=== PATIENT | female | born 1975 | race African-American/Black ===

== ENCOUNTER 2020-02-18 11:27 | Inpatient (IN) | payer MEDICAID ==
[~2020-02-18] VITALS: Ht 170.2 cm; Wt 101.6 kg
[2020-02-18 11:27] VITALS: BP 121/70
--- NOTE | 2020-02-18 11:51 | Emergency Room Report ---
History of Present Illness General Chief Complaint: Abdominal Pain Source: Patient, EMS Present Illness HPI Is a 44-year-old female presents after increased abdominal pain after running out of her pain medications. Prior history of endometrial cancer and had been followed by Dr. Noris Lazo at [facility]. She reports having severe pain to the left side of her lower abdomen. Had recent CT imaging which showed tumor in her uterus as well as her cervix. She had not had any surgical procedures yet and was scheduled to have radiation oncology. Reportedly had allergy to penicillin. She states she takes Klonopin as well as Lexapro regularly. 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 COVID-19 Screening: Negative COVID-19 COVID-19 Testing Source: remittance clerk Patient History Past Medical History: see triage record Now: No Reviewed Nursing Documentation: PMH: Agreed; PSxH: Agreed Nursing Documentation-PMH Hx Diabetes: Yes Hx Cancer: Yes - endometrial Review of Systems All Other Systems: negative except mentioned in HPI Physical Exam Vital Signs Date Time Temp Pulse Resp B/P (MAP) Pulse Ox O2 Delivery O2 Flow Rate FiO2 02/18/20 11:13 98.8 107 20 111/71 (84) 96 Room Air Sp02 EP Interpretation: reviewed, normal General Appearance: normal inspection, alert, obese, Chronically Ill Head: atraumatic ENT: normal ENT inspection, hearing grossly normal, normal voice Neck: normal inspection, full range of motion, supple, no bony tend Respiratory: normal inspection, lungs clear, normal breath sounds, no respiratory distress, no retraction, no wheezing Cardiovascular #1: regular rate, rhythm, no edema Gastrointestinal: normal inspection, normal bowel sounds, non tender, soft, no guarding, no hernia Genitourinary: no CVA tenderness Musculoskeletal: normal inspection, back normal, normal range of motion Neurologic: alert, motor strength/tone normal, addressing 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 Differential diagnosis include was not limited to opiate withdrawal, cancer pain, bowel obstruction among others. Because of complexity of patient's case laboratory tests and imaging studies were ordered.Patient's per history suggest the patient has some component of opiate withdrawal. Laboratory testing was ordered.Patient was noted to have some persistent pain. Patient had previous hospitalization in the past. She was given IV antibiotics due to urinary infection. Dr. Shahrzad Collins was contacted for inpatient management due to panel physician. Labs Test 02/18/20 12:30 02/18/20 13:40 White Blood Count 19.2 K/UL (4.8-10.8) Red Blood Count 3.84 M/UL (4.20-5.40) Hemoglobin 10.2 G/DL (12.0-16.0) Hematocrit 34.3 % (37.0-47.0) Mean Corpuscular Volume 89 FL (80-99) Mean Corpuscular Hemoglobin 26.6 PG (27.0-31.0) Mean Corpuscular Hemoglobin Concent 29.8 G/DL (32.0-36.0) Red Cell Distribution Width 20.0 % (11.6-14.8) Platelet Count 742 K/UL (150-450) Mean Platelet Volume 5.3 FL (6.5-10.1) Neutrophils (%) (Auto) % (45.0-75.0) Lymphocytes (%) (Auto) % (20.0-45.0) Monocytes (%) (Auto) % (1.0-10.0) Eosinophils (%) (Auto) % (0.0-3.0) Basophils (%) (Auto) % (0.0-2.0) Differential Total Cells Counted 100 Neutrophils % (Manual) 88 % (45-75) Lymphocytes % (Manual) 6 % (20-45) Monocytes % (Manual) 6 % (1-10) Eosinophils % (Manual) 0 % (0-3) Basophils % (Manual) 0 % (0-2) Band Neutrophils 0 % (0-8) Platelet Estimate Increased Platelet Morphology Normal Hypochromasia 1+ Anisocytosis 2+ Sodium Level 139 MMOL/L (136-145) Potassium Level 4.3 MMOL/L (3.5-5.1) Chloride Level 98 MMOL/L (98-107) Carbon Dioxide Level 26 MMOL/L (21-32) Anion Gap 15 mmol/L (5-15) Blood Urea Nitrogen 7 mg/dL (7-18) Creatinine 1.4 MG/DL (0.55-1.30) Estimat Glomerular Filtration Rate 41.0 mL/min (>60) Glucose Level 118 MG/DL (74-106) Calcium Level 9.0 MG/DL (8.5-10.1) Total Bilirubin 0.4 MG/DL (0.2-1.0) Aspartate Amino Transf (AST/SGOT) 37 U/L (15-37) Alanine Aminotransferase (ALT/SGPT) 21 U/L (12-78) Alkaline Phosphatase 131 U/L (46-116) Total Protein 8.9 G/DL (6.4-8.2) Albumin 2.1 G/DL (3.4-5.0) Globulin 6.8 g/dL Albumin/Globulin Ratio 0.3 (1.0-2.7) Lipase 62 U/L (73-393) Urine Color Yellow Urine Appearance Cloudy Urine pH 5 (4.5-8.0) Urine Specific [place] 1.025 (1.005-1.035) Urine Protein 2+ (NEGATIVE) Urine Glucose (UA) Negative (NEGATIVE) Urine Ketones 4+ (NEGATIVE) Urine Blood 5+ (NEGATIVE) Urine Nitrite Negative (NEGATIVE) Urine Bilirubin Negative (NEGATIVE) Urine Urobilinogen 1 MG/DL (0.0-1.0) Urine Leukocyte Esterase 3+ (NEGATIVE) Urine RBC 5-10 /HPF (0 - 2) Urine WBC Tntc /HPF (0 - 2) Urine Squamous Epithelial Cells Few /LPF (NONE/OCC) Urine Bacteria Few /HPF (NONE) Last Vital Signs Date Time Temp Pulse Resp B/P (MAP) Pulse Ox O2 Delivery O2 Flow Rate FiO2 02/18/20 11:27 98.8 105 16 121/70 96 Room Air Status: improved Disposition: ADMITTED INPATIENT Condition: Stable Jeremi Reich MD Feb 18, 2020 11:51
[2020-02-18] MEDS ORDERED: HYDROmorphone 1mg/ml Carpuject IVP ONE ×2 (12:00→13:30)
[2020-02-18 12:58] LABS: HEMATOCRIT 34.3 % (37.0-47.0); HEMOGLOBIN 10.2 G/DL (12.0-16.0); MEAN CORPUSCULAR VOLUME 89 FL (80-99); PLATELET COUNT 742 K/UL (150-450); RED BLOOD COUNT 3.84 M/UL (4.20-5.40); WHITE BLOOD COUNT 19.2 K/UL (4.8-10.8)
[2020-02-18 13:02] LABS: ANION GAP 15 mmol/L (5-15); BLOOD UREA NITROGEN 7 mg/dL (7-18); CARBON DIOXIDE 26 MMOL/L (21-32); CHLORIDE 98 MMOL/L (98-107); CREATININE 1.4 MG/DL (0.55-1.30); POTASSIUM 4.3 MMOL/L (3.5-5.1); SODIUM 139 MMOL/L (136-145)
[2020-02-18 13:06] LABS: ALANINE AMINOTRANSFERASE 21 U/L (12-78); ALBUMIN 2.1 G/DL (3.4-5.0); ALBUMIN/GLOBULIN RATIO 0.3 (1.0-2.7); ALKALINE PHOSPHATASE 131 U/L (46-116); ASPARTATE AMINO TRANSFERASE 37 U/L (15-37); BILIRUBIN,TOTAL 0.4 MG/DL (0.2-1.0)
[2020-02-18] MEDS ORDERED: Omnipaque-300 100ml vial INJ PRN (13:15)
[2020-02-18 13:50] VITALS: BP 127/74
[2020-02-18 14:01] LABS: APPEARANCE,URINE CLOUDY; BILIRUBIN, URINE NEGATIVE (NEGATIVE); GLUCOSE, URINE (UA) NEGATIVE (NEGATIVE); KETONES,URINE 4+ (NEGATIVE); LEUKOCYTE ESTERASE ,URINE 3+ (NEGATIVE); NITRITE,URINE NEGATIVE (NEGATIVE); PH,URINE 5 (4.5-8.0); PROTEIN,URINE 2+ (NEGATIVE); UROBILINOGEN,URINE 1 MG/DL (0.0-1.0)
[2020-02-18 14:14] LABS: COLOR,URINE YELLOW
--- NOTE | 2020-02-18 15:23 | Diagnostic Imaging Report ---
Clinical Indication: Abdominal pain, severe left lower abdominal pain. Technique: No oral contrast utilized, per emergency room physician request IV administration nonionic contrast. Venous phase spiral acquisition obtained through the abdomen and pelvis. Multiplanar reconstructions were generated. Total dose length product 681 mGycm. CTDIvol(s) 10.9 mGy. Dose reduction achieved using automated exposure control Comparison: none Findings: There is a very unusual lesion involving the lower uterine segment and cervix. This demonstrates fluid attenuation centrally with an enhancing rim, measures 9.2 cm AP by 7.9 cm transverse by 9 cm craniocaudad. There is equivocally some layering of hyperattenuating material at the inferior aspect, although this is not dependent with the patient supine. The superior portion of this appears to communicate with the upper endometrial . There is also thickening of the endometrium in the upper uterine segment, with endometrium measuring approximately 2.4 cm thick. The right ovary is prominent but probably normal in size, but there appears to be a small amount of fluid extending caudad from it. There is also small amount of fluid posterior to the cervix. There is a large mass in the left mid abdomen. This measures 14 cm transverse by 10.2 cm AP by approximately 20 cm craniocaudad. This demonstrates a mixture of enhancing solid and cystic/necrotic. The upper portion of this mass demonstrates near fluid attenuation with a thin enhancing rim. The liver demonstrates a poorly defined area of hypoattenuation in segment 4A. This measures approximately 3.4 cm AP by 4.3 cm transverse. It appears to be infiltrating and contains vessels. The remainder of the liver is mildly hypoattenuating, and measures approximately 24 Hounsfield units below the spleen in attenuation. The gallbladder contains a fundal gallstone. No biliary ductal dilatation. The pancreas, spleen, adrenals, right kidney are unremarkable. The left kidney demonstrates mild hydronephrosis and proximal hydroureter. No retroperitoneal lymphadenopathy is demonstrated. Lack of enteric contrast limits assessment of the GI tract. The appendix is normal. No small bowel distention or small bowel wall thickening. No evidence of colonic diverticulosis or diverticulitis. The distal esophagus, stomach, duodenum are unremarkable. The lungs demonstrate bilateral basilar scarring or atelectasis, more on the right than on the left. The bones demonstrate mild degenerative spondylosis changes. Impression: Very unusual finding of a cystic mass expanding the endocervical canal and lower uterine segment endometrium. Given history of endometrial carcinoma it is quite possible that this represents hydrometra related to obstruction of the outer endocervical canal by tumor. The possibility of cystic neoplasm involving the endocervical canal and lower uterine endometrial cavity could also be considered, although this would be very unusual. Nonspecific thickening of the upper uterine endometrium, likely related to stated clinical history of endometrial carcinoma Large 14 x 10.2 x 20 cm mixed solid and cystic/necrotic left mid abdominal mass. This presumably represents a large metastatic deposit, given stated clinical history of endometrial carcinoma. Fatty liver. 3.4 x 4.3 cm area of hypoattenuation in segment 4A of the liver. Given the presence of hepatic fatty change as well as the appearance of vessels running through this, this most likely represents an area of geographic fatty infiltration. However, the possibility of hepatic metastatic deposit should also be considered. Mild left hydronephrosis, presumably due to a ureteral compression by the left mid abdominal mass Cholelithiasis The CT scanner at [facility] is accredited by the [employer] and the scans are performed using protocols designed to limit radiation exposure to as low as reasonably achievable to attain images of sufficient resolution adequate for diagnostic evaluation.
[2020-02-18 15:30] VITALS: BP 122/76
--- NOTE | 2020-02-18 16:22 | Diagnostic Imaging Report ---
Indication: Abdominal pain Technique: Supine view of the abdomen Comparison: none Findings: There is a mass in the left midabdomen, corresponding to mass described on subsequent CT scan. The bowel gas pattern is unremarkable. There is some atelectasis at the right lung base. The bones are unremarkable. Impression: No acute abnormality Mass in the left midabdomen, corresponding to findings reported on recent CT scan.
[2020-02-18] MEDS ORDERED: OXYCONTIN20 MG ORAL (17:43)
[2020-02-18] MEDS ORDERED: LEXAPRO10 MG ORAL (17:43)
[2020-02-18] MEDS ORDERED: KLONOPIN0.5 MG ORAL (17:43)
[2020-02-18] MEDS ORDERED: D5NS 1,000 ML IV SCH (18:45)
[2020-02-18] MEDS: HYDROmorphone 1mg/ml Carpuject IVP PRN ×2 (19:44→23:08)
[2020-02-18 20:00] VITALS: BP 108/59
[2020-02-18] MEDS: NovoLOG Insulin Flexpen SUBQ SCH (20:24)
[2020-02-18] MEDS: clonazePAM 0.5mg tab ORAL SCH (20:24)
--- NOTE | 2020-02-18 21:29 | History and Physical ---
History of Present Illness General Reason for Hospitalization: Abdominal Pain Present Illness HPI A pleasant 44yo AAF who reported for abdominal pain. She has a known medical history for endometrial carcinoma with METs. She is being followed at [facility] by Dr Lazo. She has not started on chemotherapy and/or radiation but has plans too. She is non surgical for now due to mets. She states is mostly left lower quadrant. Pain is 10/10. Her oxycodone 10mg is not helping any more. She tried doubling the medication as well. She denies fever, chills, night sweats, cough, nausea, vomiting or diarrhea. She is having some discharge and noted spotting blood on toilet paper. On KUB its negative for acute obstruction. On CT of A/P shows endometrial mass at 9x9cm with multiple large masses in the abdominal cavity. Patient admitted for leukocytosis and abdominal pain. Allergies: Coded Allergies: PENICILLINS (Verified Allergy, Mild, Itching, 02/18/20) COVID-19 Screening Contact w/high risk pt: No Recent Travel to affected area: No Experienced COVID-19 symptoms?: No Medication History Scheduled Clonazepam* (Klonopin*), Unknown Dose ORAL Q6H, (Reported) Escitalopram Oxalate* (Lexapro*), Unknown Dose ORAL DAILY, (Reported) Oxycodone Hcl Er* (Oxycontin*), 20 MG ORAL EVERY 12 HOURS, (Reported) Patient History Healthcare decision maker Resuscitation status Advanced Directive on File Review of Systems Constitutional: Reports: no symptoms Eye: Reports: no symptoms ENT: Reports: no symptoms Respiratory: Reports: no symptoms Cardiovascular: Reports: no symptoms Gastrointestinal: Reports: abdominal pain Genitourinary: Reports: discharge, vag bleed/dc Musculoskeletal: Reports: no symptoms Skin: Reports: no symptoms Psychiatric: Reports: no symptoms Neurological: Reports: no symptoms Endocrine: Reports: no symptoms Physical Exam General Appearance: moderate distress HEENT: normocephalic, atraumatic Neck: non-tender, normal alignment Respiratory/Chest: chest wall non-tender, lungs clear Cardiovascular/Chest: normal peripheral pulses, normal rate, regular rhythm Abdomen: soft, abnormal bowel sounds, tender Extremities: normal range of motion, non-tender Neurologic: home specialist II-XII grossly normal, no motor/sensory deficits, alert, oriented x 3 Last 24 Hour Vital Signs Date Time Temp Pulse Resp B/P (MAP) Pulse Ox O2 Delivery O2 Flow Rate FiO2 02/18/20 18:05 98.5 81 18 126/70 98 Room Air 02/18/20 15:30 98.6 88 19 122/76 97 Room Air 02/18/20 13:50 98.6 84 17 127/74 97 Room Air 02/18/20 11:27 98.8 105 16 121/70 96 Room Air 02/18/20 11:27 105 16 Room Air 02/18/20 11:13 98.8 107 20 111/71 (84) 96 Room Air Laboratory Tests Test 02/18/20 12:30 02/18/20 13:40 02/18/20 20:22 White Blood Count 19.2 K/UL (4.8-10.8) H Red Blood Count 3.84 M/UL (4.20-5.40) L Hemoglobin 10.2 G/DL (12.0-16.0) L Hematocrit 34.3 % (37.0-47.0) L Mean Corpuscular Volume 89 FL (80-99) Mean Corpuscular Hemoglobin 26.6 PG (27.0-31.0) L Mean Corpuscular Hemoglobin Concent 29.8 G/DL (32.0-36.0) L Red Cell Distribution Width 20.0 % (11.6-14.8) H Platelet Count 742 K/UL (150-450) H Mean Platelet Volume 5.3 FL (6.5-10.1) L Neutrophils (%) (Auto) % (45.0-75.0) Lymphocytes (%) (Auto) % (20.0-45.0) Monocytes (%) (Auto) % (1.0-10.0) Eosinophils (%) (Auto) % (0.0-3.0) Basophils (%) (Auto) % (0.0-2.0) Differential Total Cells Counted 100 Neutrophils % (Manual) 88 % (45-75) H Lymphocytes % (Manual) 6 % (20-45) L Monocytes % (Manual) 6 % (1-10) Eosinophils % (Manual) 0 % (0-3) Basophils % (Manual) 0 % (0-2) Band Neutrophils 0 % (0-8) Platelet Estimate Increased H Platelet Morphology Normal Hypochromasia 1+ Anisocytosis 2+ Sodium Level 139 MMOL/L (136-145) Potassium Level 4.3 MMOL/L (3.5-5.1) Chloride Level 98 MMOL/L (98-107) Carbon Dioxide Level 26 MMOL/L (21-32) Anion Gap 15 mmol/L (5-15) Blood Urea Nitrogen 7 mg/dL (7-18) Creatinine 1.4 MG/DL (0.55-1.30) H Estimat Glomerular Filtration Rate 41.0 mL/min (>60) Glucose Level 118 MG/DL (74-106) H Calcium Level 9.0 MG/DL (8.5-10.1) Total Bilirubin 0.4 MG/DL (0.2-1.0) Aspartate Amino Transf (AST/SGOT) 37 U/L (15-37) Alanine Aminotransferase (ALT/SGPT) 21 U/L (12-78) Alkaline Phosphatase 131 U/L (46-116) H Total Protein 8.9 G/DL (6.4-8.2) H Albumin 2.1 G/DL (3.4-5.0) L Globulin 6.8 g/dL Albumin/Globulin Ratio 0.3 (1.0-2.7) L Lipase 62 U/L (73-393) L Urine Color Yellow Urine Appearance Cloudy Urine pH 5 (4.5-8.0) Urine Specific [place] 1.025 (1.005-1.035) Urine Protein 2+ (NEGATIVE) H Urine Glucose (UA) Negative (NEGATIVE) Urine Ketones 4+ (NEGATIVE) H Urine Blood 5+ (NEGATIVE) H Urine Nitrite Negative (NEGATIVE) Urine Bilirubin Negative (NEGATIVE) Urine Urobilinogen 1 MG/DL (0.0-1.0) H Urine Leukocyte Esterase 3+ (NEGATIVE) H Urine RBC 5-10 /HPF (0 - 2) H Urine WBC Tntc /HPF (0 - 2) H Urine Squamous Epithelial Cells Few /LPF (NONE/OCC) Urine Bacteria Few /HPF (NONE) POC Whole Blood Glucose 84 MG/DL (74-106) Microbiology Date/Time Source Procedure Growth Status 02/18/20 16:04 Nasopharynx SARS-CoV-2 RdRp Gene Assay - Final Complete Height (Feet): 5 Height (Inches): 7.00 Weight (Pounds): 220 Medications Current Medications Medications (Trade) Dose Ordered Sig/Netta Route PRN Reason Start Time Stop Time Status Last Admin Dose Admin Acetaminophen (Tylenol) 650 mg Q6H PRN ORAL Mild Pain (Pain Scale 1-3) 02/18/20 18:45 03/19/20 18:44 Acetaminophen/ Hydrocodone Bitart ([place] 5/325) 1 tab Q6H PRN ORAL Moderate Pain (Pain Scale 4-6) 02/18/20 18:45 02/25/20 18:44 Clonazepam (KlonoPIN) 0.5 mg EVERY 12 HOURS ORAL 02/18/20 21:00 02/25/20 20:59 02/18/20 20:24 Dextrose (Dextrose 50%) 25 ml Q30M PRN IV Hypoglycemia 02/18/20 18:45 05/18/20 18:44 Dextrose (Dextrose 50%) 50 ml Q30M PRN IV Hypoglycemia 02/18/20 18:45 05/18/20 18:44 Dextrose/Sodium Chloride 1,000 ml @ 75 mls/hr [id number] IV 02/18/20 18:45 03/19/20 18:44 02/18/20 20:23 Escitalopram Oxalate (Lexapro) 10 mg DAILY ORAL 02/19/20 09:00 03/20/20 08:59 Hydromorphone HCl (Dilaudid) 1 mg Q3H PRN IVP Severe Pain (Pain Scale 7-10) 02/18/20 18:45 02/25/20 18:44 02/18/20 19:44 Insulin Aspart (NovoLOG) BEFORE MEALS AND HS SUBQ 02/18/20 21:00 05/18/20 20:59 Iohexol (OMNIPAQUE-300 100ml) 100 ml NOW PRN INJ Radiology Procedure 02/18/20 13:15 02/20/20 13:13 Ondansetron HCl (Zofran) 4 mg Q4H PRN IVP Nausea & Vomiting 02/18/20 18:45 03/19/20 18:44 Assessment/Plan Problem List: (1) Endometrial ca Assessment & Plan: This is a 44yo AAF who reported for intractable abdominal pain which has a noted history for non treated endometrial carcinoma with METS. Patient admitted for leukocytosis and abdominal pain. Consults: Nephrology: Dr. Collins and he consulted GI/ID/Cardiology ORDERS - Pain management - Received one dose of levaquin - Switch to rocephin 1g daily. Await cultures - Start IVF - Repeat CBC w/ diff - ICD Codes: C54.1 - Malignant neoplasm of endometrium SNOMED: 649186524 (2) Leukocytosis ICD Codes: D72.829 - Elevated white blood cell count, unspecified SNOMED: 238550936, 502337719 (3) MOHSEN (acute kidney injury) ICD Codes: N17.9 - Acute kidney failure, unspecified SNOMED: 4812398, 68186436 Status: unchanged Kunal Min D.O. Feb 18, 2020 21:29
[2020-02-18] MEDS ORDERED: cefTRIAXone 1 GM in D5W 55 ML IVPB SCH (21:30)
[2020-02-18] MEDS: HYDROcodone/Acetamin 5/325 tab ORAL PRN (21:31)
[2020-02-19] VITALS: BP 99/51
[2020-02-19] MEDS: HYDROmorphone 1mg/ml Carpuject IVP PRN ×7 (02:49→21:33)
[2020-02-19 04:00] VITALS: BP 108/68
[2020-02-19 05:48] LABS: HEMATOCRIT 31.3 % (37.0-47.0); HEMOGLOBIN 9.6 G/DL (12.0-16.0); MEAN CORPUSCULAR VOLUME 88 FL (80-99); PLATELET COUNT 710 K/UL (150-450); RED BLOOD COUNT 3.55 M/UL (4.20-5.40)
[2020-02-19] MEDS: NovoLOG Insulin Flexpen SUBQ SCH ×4 (05:52→21:00)
[2020-02-19 06:10] LABS: ALANINE AMINOTRANSFERASE 16 U/L (12-78); ALBUMIN 1.8 G/DL (3.4-5.0); ALBUMIN/GLOBULIN RATIO 0.3 (1.0-2.7); ALKALINE PHOSPHATASE 121 U/L (46-116); ANION GAP 9 mmol/L (5-15); ASPARTATE AMINO TRANSFERASE 31 U/L (15-37); BILIRUBIN,TOTAL 0.3 MG/DL (0.2-1.0); BLOOD UREA NITROGEN 5 mg/dL (7-18); CALCIUM 8.3 MG/DL (8.5-10.1); CARBON DIOXIDE 27 MMOL/L (21-32); CHLORIDE 100 MMOL/L (98-107); CREATININE 1.2 MG/DL (0.55-1.30); SODIUM 136 MMOL/L (136-145)
[2020-02-19 06:12] LABS: WHITE BLOOD COUNT 22.1 K/UL (4.8-10.8)
[2020-02-19 08:00] VITALS: BP 101/64
--- NOTE | 2020-02-19 08:16 | Consultation ---
History of Present Illness General Chief Complaint: Abdominal Pain Present Illness Allergies: Coded Allergies: PENICILLINS (Verified Allergy, Mild, Itching, 02/18/20) Medication History Scheduled Clonazepam* (Klonopin*), Unknown Dose ORAL Q6H, (Reported) Escitalopram Oxalate* (Lexapro*), Unknown Dose ORAL DAILY, (Reported) Gabapentin* (Neurontin*), 300 MG ORAL THREE TIMES A DAY, (Reported) Scheduled PRN Oxycodone Hcl/Acetaminophen 10-325 Mg Tablet (Percocet 10-325 Mg Tablet*), 1 TAB ORAL Q6H PRN, (Reported) Miscellaneous Medications Naloxone HCl (Narcan), 4 MG NS, (Reported) Discontinued Medications Oxycodone Hcl Er* (Oxycontin*), 20 MG ORAL EVERY 12 HOURS, (Reported) Discontinued Reason: MD discontinued med Patient History Healthcare decision maker Resuscitation status Advanced Directive on File Physical Exam Last 24 Hour Vital Signs Date Time Temp Pulse Resp B/P (MAP) Pulse Ox O2 Delivery O2 Flow Rate FiO2 02/19/20 04:00 98.9 84 19 108/68 (81) 96 02/19/20 00:00 99.0 82 19 99/51 (67) 96 02/18/20 23:32 Room Air 02/18/20 20:14 98.5 02/18/20 20:00 99.6 87 18 108/59 (75) 97 02/18/20 18:05 98.5 81 18 126/70 98 Room Air 02/18/20 15:30 98.6 88 19 122/76 97 Room Air 02/18/20 13:50 98.6 84 17 127/74 97 Room Air 02/18/20 11:27 98.8 105 16 121/70 96 Room Air 02/18/20 11:27 105 16 Room Air 02/18/20 11:13 98.8 107 20 111/71 (84) 96 Room Air Intake and Output 02/18/20 02/19/20 19:00 07:00 Intake Total 2100 ml 1320 ml Balance 2100 ml 1320 ml Intake Oral 0 ml 820 ml IV Total 2100 ml 500 ml # Voids 1 2 Laboratory Tests Test 02/18/20 12:30 02/18/20 13:40 02/18/20 20:22 02/19/20 04:45 White Blood Count 19.2 K/UL (4.8-10.8) H 22.1 K/UL (4.8-10.8) *H Red Blood Count 3.84 M/UL (4.20-5.40) L 3.55 M/UL (4.20-5.40) L Hemoglobin 10.2 G/DL (12.0-16.0) L 9.6 G/DL (12.0-16.0) L Hematocrit 34.3 % (37.0-47.0) L 31.3 % (37.0-47.0) L Mean Corpuscular Volume 89 FL (80-99) 88 FL (80-99) Mean Corpuscular Hemoglobin 26.6 PG (27.0-31.0) L 27.0 PG (27.0-31.0) Mean Corpuscular Hemoglobin Concent 29.8 G/DL (32.0-36.0) L 30.6 G/DL (32.0-36.0) L Red Cell Distribution Width 20.0 % (11.6-14.8) H 20.0 % (11.6-14.8) H Platelet Count 742 K/UL (150-450) H 710 K/UL (150-450) H Mean Platelet Volume 5.3 FL (6.5-10.1) L 5.4 FL (6.5-10.1) L Neutrophils (%) (Auto) % (45.0-75.0) % (45.0-75.0) Lymphocytes (%) (Auto) % (20.0-45.0) % (20.0-45.0) Monocytes (%) (Auto) % (1.0-10.0) % (1.0-10.0) Eosinophils (%) (Auto) % (0.0-3.0) % (0.0-3.0) Basophils (%) (Auto) % (0.0-2.0) % (0.0-2.0) Differential Total Cells Counted 100 100 Neutrophils % (Manual) 88 % (45-75) H 88 % (45-75) H Lymphocytes % (Manual) 6 % (20-45) L 4 % (20-45) L Monocytes % (Manual) 6 % (1-10) 6 % (1-10) Eosinophils % (Manual) 0 % (0-3) 2 % (0-3) Basophils % (Manual) 0 % (0-2) 0 % (0-2) Band Neutrophils 0 % (0-8) 0 % (0-8) Platelet Estimate Increased H Increased H Platelet Morphology Normal Normal Hypochromasia 1+ 1+ Anisocytosis 2+ 2+ Sodium Level 139 MMOL/L (136-145) 136 MMOL/L (136-145) Potassium Level 4.3 MMOL/L (3.5-5.1) 4.0 MMOL/L (3.5-5.1) Chloride Level 98 MMOL/L (98-107) 100 MMOL/L (98-107) Carbon Dioxide Level 26 MMOL/L (21-32) 27 MMOL/L (21-32) Anion Gap 15 mmol/L (5-15) 9 mmol/L (5-15) Blood Urea Nitrogen 7 mg/dL (7-18) 5 mg/dL (7-18) L Creatinine 1.4 MG/DL (0.55-1.30) H 1.2 MG/DL (0.55-1.30) Estimat Glomerular Filtration Rate 41.0 mL/min (>60) 59.4 mL/min (>60) Glucose Level 118 MG/DL (74-106) H 81 MG/DL (74-106) Calcium Level 9.0 MG/DL (8.5-10.1) 8.3 MG/DL (8.5-10.1) L Total Bilirubin 0.4 MG/DL (0.2-1.0) 0.3 MG/DL (0.2-1.0) Aspartate Amino Transf (AST/SGOT) 37 U/L (15-37) 31 U/L (15-37) Alanine Aminotransferase (ALT/SGPT) 21 U/L (12-78) 16 U/L (12-78) Alkaline Phosphatase 131 U/L (46-116) H 121 U/L (46-116) H Total Protein 8.9 G/DL (6.4-8.2) H 8.1 G/DL (6.4-8.2) Albumin 2.1 G/DL (3.4-5.0) L 1.8 G/DL (3.4-5.0) L Globulin 6.8 g/dL 6.3 g/dL Albumin/Globulin Ratio 0.3 (1.0-2.7) L 0.3 (1.0-2.7) L Lipase 62 U/L (73-393) L Urine Color Yellow Urine Appearance Cloudy Urine pH 5 (4.5-8.0) Urine Specific [place] 1.025 (1.005-1.035) Urine Protein 2+ (NEGATIVE) H Urine Glucose (UA) Negative (NEGATIVE) Urine Ketones 4+ (NEGATIVE) H Urine Blood 5+ (NEGATIVE) H Urine Nitrite Negative (NEGATIVE) Urine Bilirubin Negative (NEGATIVE) Urine Urobilinogen 1 MG/DL (0.0-1.0) H Urine Leukocyte Esterase 3+ (NEGATIVE) H Urine RBC 5-10 /HPF (0 - 2) H Urine WBC Tntc /HPF (0 - 2) H Urine Squamous Epithelial Cells Few /LPF (NONE/OCC) Urine Bacteria Few /HPF (NONE) POC Whole Blood Glucose 84 MG/DL (74-106) Magnesium Level 2.0 MG/DL (1.8-2.4) Test 02/19/20 05:50 POC Whole Blood Glucose 78 MG/DL (74-106) Microbiology Date/Time Source Procedure Growth Status 02/18/20 16:04 Nasopharynx SARS-CoV-2 RdRp Gene Assay - Final Complete 02/18/20 13:40 Urine,Clean Catch Urine Culture - Preliminary NO GROWTH Resulted Height (Feet): 5 Height (Inches): 7.00 Weight (Pounds): 220 Medications Current Medications Medications (Trade) Dose Ordered Sig/Netta Route PRN Reason Start Time Stop Time Status Last Admin Dose Admin Acetaminophen (Tylenol) 650 mg Q6H PRN ORAL Mild Pain (Pain Scale 1-3) 02/18/20 18:45 03/19/20 18:44 Acetaminophen/ Hydrocodone Bitart ([place] 5/325) 1 tab Q6H PRN ORAL Moderate Pain (Pain Scale 4-6) 02/18/20 18:45 02/25/20 18:44 02/18/20 21:31 Ceftriaxone Sodium 1 gm/ Dextrose 55 ml @ 110 mls/hr Q24H IVPB 02/19/20 21:00 02/26/20 20:59 Clonazepam (KlonoPIN) 0.5 mg EVERY 12 HOURS ORAL 02/18/20 21:00 02/25/20 20:59 02/18/20 20:24 Dextrose (Dextrose 50%) 25 ml Q30M PRN IV Hypoglycemia 02/18/20 18:45 05/18/20 18:44 Dextrose (Dextrose 50%) 50 ml Q30M PRN IV Hypoglycemia 02/18/20 18:45 05/18/20 18:44 Escitalopram Oxalate (Lexapro) 10 mg DAILY ORAL 02/19/20 09:00 03/20/20 08:59 Hydromorphone HCl (Dilaudid) 1 mg Q3H PRN IVP Severe Pain (Pain Scale 7-10) 02/18/20 18:45 02/25/20 18:44 02/19/20 05:53 Insulin Aspart (NovoLOG) BEFORE MEALS AND HS SUBQ 02/18/20 21:00 05/18/20 20:59 Iohexol (OMNIPAQUE-300 100ml) 100 ml NOW PRN INJ Radiology Procedure 02/18/20 13:15 02/20/20 13:13 Ondansetron HCl (Zofran) 4 mg Q4H PRN IVP Nausea & Vomiting 02/18/20 18:45 03/19/20 18:44 Sodium Chloride 1,000 ml @ 50 mls/hr Q20H IV 02/18/20 21:57 03/19/20 21:56 02/18/20 22:09 Shahrzad Collins M.D. Feb 19, 2020 08:16
[2020-02-19] MEDS: clonazePAM 0.5mg tab ORAL SCH (08:46)
[2020-02-19] MEDS: HYDROcodone/Acetamin 5/325 tab ORAL PRN (10:47)
[2020-02-19 12:00] VITALS: BP 98/58
--- NOTE | 2020-02-19 12:27 | General Progress Note ---
Assessment/Plan Problem List: (1) Depression determined by examination Assessment & Plan: Patient depressed about diagnosis. Has suicidal ideation but no plan Consult to psychiatry Suicidal precautions ICD Codes: F32.9 - Major depressive disorder, single episode, unspecified SNOMED: 786004846 (2) Abdominal pain Assessment & Plan: Likely due to patient's endometrial carcinoma with metastasis. Patient currently on 1 mg Dilaudid every 4 hours as needed. She says it is the only thing that helps Consult to pain management. CT shows mass in uterus. ICD Codes: R10.9 - Unspecified abdominal pain SNOMED: 47789482 (3) Endometrial ca Assessment & Plan: Consult to oncology. Has not undergone any treatments and is followed at [facility] She says she does not know if she is interested in pursuing treatment ICD Codes: C54.1 - Malignant neoplasm of endometrium SNOMED: 012281520 (4) MOHSEN (acute kidney injury) Assessment & Plan: Fluid hydration per orders AKA resolving Consult to nephrology and appreciate recommendations. Replace electrolytes as needed. Hold all nephrotoxic medications. ICD Codes: N17.9 - Acute kidney failure, unspecified SNOMED: 7766523, [id number] (5) Leukocytosis Assessment & Plan: Likely reactive leukocytosis due to the metastatic process. Hematology and oncology following. ICD Codes: D72.829 - Elevated white blood cell count, unspecified SNOMED: 713032034, [id number] Status: stable, unchanged Assessment/Plan: DVT prophylaxis with subcu Lovenox. 40 minutes time spent on this patient [id number]. 20 minutes per chart review , coordinating with consultants. Subjective Constitutional: Reports: no symptoms HEENT: Reports: no symptoms Cardiovascular: Reports: no symptoms Respiratory: Reports: no symptoms Gastrointestinal/Abdominal: Reports: abdominal pain, poor appetite; Denies: black stools, tarry stools, blood in stool Genitourinary: Reports: pain Neurologic/Psychiatric: Reports: depressed, emotional problems Endocrine: Reports: no symptoms Hematologic/Lymphatic: Reports: no symptoms Allergies: Coded Allergies: PENICILLINS (Verified Allergy, Mild, Itching, 02/18/20) Objective Last 24 Hour Vital Signs Date Time Temp Pulse Resp B/P (MAP) Pulse Ox O2 Delivery O2 Flow Rate FiO2 02/19/20 11:17 98.9 02/19/20 09:16 98.9 02/19/20 09:00 Room Air 02/19/20 08:00 98.5 85 18 101/64 (76) 96 02/19/20 04:00 98.9 84 19 108/68 (81) 96 02/19/20 00:00 99.0 82 19 99/51 (67) 96 02/18/20 23:32 Room Air 02/18/20 20:00 99.6 87 18 108/59 (75) 97 02/18/20 18:05 98.5 81 18 126/70 98 Room Air 02/18/20 15:30 98.6 88 19 122/76 97 Room Air 02/18/20 13:50 98.6 84 17 127/74 97 Room Air Intake and Output 02/18/20 02/19/20 19:00 07:00 Intake Total 2100 ml 1320 ml Balance 2100 ml 1320 ml Intake Oral 0 ml 820 ml IV Total 2100 ml 500 ml # Voids 1 2 Laboratory Tests 02/18/20 12:30: White Blood Count 19.2H, Red Blood Count 3.84L, Hemoglobin 10.2L, Hematocrit 34.3L, Mean Corpuscular Volume 89, Mean Corpuscular Hemoglobin 26.6L, Mean Corpuscular Hemoglobin Concent 29.8L, Red Cell Distribution Width 20.0H, Platelet Count 742H, Mean Platelet Volume 5.3L, Neutrophils (%) (Auto) , Lymphocytes (%) (Auto) , Monocytes (%) (Auto) , Eosinophils (%) (Auto) , Basophils (%) (Auto) , Differential Total Cells Counted 100, Neutrophils % ( Manual) 88H, Lymphocytes % (Manual) 6L, Monocytes % (Manual) 6, Eosinophils % ( Manual) 0, Basophils % (Manual) 0, Band Neutrophils 0, Platelet Estimate IncreasedH, Platelet Morphology Normal, Hypochromasia 1+, Anisocytosis 2+, Sodium Level 139, Potassium Level 4.3, Chloride Level 98, Carbon Dioxide Level 26, Anion Gap 15, Blood Urea Nitrogen 7, Creatinine 1.4H, Estimat Glomerular Filtration Rate 41.0, Glucose Level 118H, Calcium Level 9.0, Total Bilirubin 0.4 , Aspartate Amino Transf (AST/SGOT) 37, Alanine Aminotransferase (ALT/SGPT) 21, Alkaline Phosphatase 131H, Total Protein 8.9H, Albumin 2.1L, Globulin 6.8, Albumin/Globulin Ratio 0.3L, Lipase 62L 02/18/20 13:40: Urine Color Yellow, Urine Appearance Cloudy, Urine pH 5, Urine Specific [place] 1.025, Urine Protein 2+H, Urine Glucose (UA) Negative, Urine Ketones 4+H, Urine Blood 5+H, Urine Nitrite Negative, Urine Bilirubin Negative, Urine Urobilinogen 1H, Urine Leukocyte Esterase 3+H, Urine RBC 5-10H, Urine WBC TntcH, Urine Squamous Epithelial Cells Few, Urine Bacteria Few 02/18/20 20:22: POC Whole Blood Glucose 84 02/19/20 04:45: White Blood Count 22.1*H, Red Blood Count 3.55L, Hemoglobin 9.6L, Hematocrit 31.3L, Mean Corpuscular Volume 88, Mean Corpuscular Hemoglobin 27.0, Mean Corpuscular Hemoglobin Concent 30.6L, Red Cell Distribution Width 20.0H, Platelet Count 710H, Mean Platelet Volume 5.4L, Neutrophils (%) (Auto) , Lymphocytes (%) (Auto) , Monocytes (%) (Auto) , Eosinophils (%) (Auto) , Basophils (%) (Auto) , Differential Total Cells Counted 100, Neutrophils % ( Manual) 88H, Lymphocytes % (Manual) 4L, Monocytes % (Manual) 6, Eosinophils % ( Manual) 2, Basophils % (Manual) 0, Band Neutrophils 0, Platelet Estimate IncreasedH, Platelet Morphology Normal, Hypochromasia 1+, Anisocytosis 2+, Sodium Level 136, Potassium Level 4.0, Chloride Level 100, Carbon Dioxide Level 27, Anion Gap 9, Blood Urea Nitrogen 5L, Creatinine 1.2, Estimat Glomerular Filtration Rate 59.4, Glucose Level 81, Calcium Level 8.3L, Total Bilirubin 0.3 , Aspartate Amino Transf (AST/SGOT) 31, Alanine Aminotransferase (ALT/SGPT) 16, Alkaline Phosphatase 121H, Total Protein 8.1, Albumin 1.8L, Globulin 6.3, Albumin/Globulin Ratio 0.3L, Magnesium Level 2.0 02/19/20 05:50: POC Whole Blood Glucose 78 02/19/20 11:46: POC Whole Blood Glucose [Pending] Height (Feet): 5 Height (Inches): 7.00 Weight (Pounds): 220 General Appearance: no apparent distress, alert EENT: PERRL/EOMI, normal ENT inspection, TMs normal Neck: non-tender, normal alignment Cardiovascular: normal peripheral pulses, normal rate, regular rhythm Respiratory/Chest: chest wall non-tender, lungs clear, normal breath sounds, no respiratory distress, no accessory muscle use Abdomen: soft, guarding, tender Pelvis: tender uterus Extremities: normal range of motion, non-tender Neurologic: 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 Feb 19, 2020 12:27
[2020-02-19 16:00] VITALS: BP 105/62
[2020-02-19] MEDS ORDERED: NS Irrig 1000ml ONE (17:41)
[2020-02-19] MEDS ORDERED: Tubing IV Secondary IV ONE (17:41)
[2020-02-19 20:00] VITALS: BP 100/55
[2020-02-19] MEDS: cefTRIAXone 1 GM in D5W 55 ML IVPB SCH (21:15)
[2020-02-20] VITALS: BP 105/58
[2020-02-20] MEDS: HYDROmorphone 1mg/ml Carpuject IVP PRN ×7 (02:36→21:56)
[2020-02-20 04:00] VITALS: BP 98/52
[2020-02-20] MEDS: NovoLOG Insulin Flexpen SUBQ SCH ×4 (05:28→20:11)
[2020-02-20 06:26] LABS: HEMATOCRIT 29.4 % (37.0-47.0); HEMOGLOBIN 8.9 G/DL (12.0-16.0); MEAN CORPUSCULAR VOLUME 89 FL (80-99); PLATELET COUNT 630 K/UL (150-450); RED BLOOD COUNT 3.32 M/UL (4.20-5.40); RED CELL DISTRIBUTION WIDTH 20.1 % (11.6-14.8); WHITE BLOOD COUNT 20.5 K/UL (4.8-10.8)
--- NOTE | 2020-02-20 06:39 | Consultation ---
History of Present Illness General Chief Complaint: Abdominal Pain Present Illness Allergies: Coded Allergies: PENICILLINS (Verified Allergy, Mild, Itching, 02/18/20) Medication History Scheduled Clonazepam* (Klonopin*), Unknown Dose ORAL Q6H, (Reported) Escitalopram Oxalate* (Lexapro*), Unknown Dose ORAL DAILY, (Reported) Oxycodone Hcl Er* (Oxycontin*), 20 MG ORAL EVERY 12 HOURS, (Reported) Patient History Healthcare decision maker Resuscitation status Advanced Directive on File Physical Exam Last 24 Hour Vital Signs Date Time Temp Pulse Resp B/P (MAP) Pulse Ox O2 Delivery O2 Flow Rate FiO2 02/20/20 04:00 99.1 73 16 98/52 (67) 95 02/20/20 00:00 98.4 79 16 105/58 (74) 94 02/19/20 21:00 Room Air 02/19/20 20:00 98.5 75 16 100/55 (70) 97 02/19/20 19:02 98.6 02/19/20 16:00 98.6 79 18 105/62 (76) 96 02/19/20 12:00 98.6 76 18 98/58 (71) 96 02/19/20 11:17 98.9 02/19/20 09:00 Room Air 02/19/20 08:00 98.5 85 18 101/64 (76) 96 Intake and Output 02/19/20 02/20/20 19:00 07:00 Intake Total 50 ml Balance 50 ml IV Total 50 ml Laboratory Tests Test 02/19/20 11:46 02/19/20 17:09 02/19/20 21:17 02/20/20 05:20 POC Whole Blood Glucose Pending 70 MG/DL (74-106) L 88 MG/DL (74-106) White Blood Count Pending Red Blood Count Pending Hemoglobin Pending Hematocrit Pending Mean Corpuscular Volume Pending Mean Corpuscular Hemoglobin Pending Mean Corpuscular Hemoglobin Concent Pending Red Cell Distribution Width Pending Platelet Count Pending Mean Platelet Volume Pending Neutrophils (%) (Auto) Pending Lymphocytes (%) (Auto) Pending Monocytes (%) (Auto) Pending Eosinophils (%) (Auto) Pending Basophils (%) (Auto) Pending Sodium Level Pending Potassium Level Pending Chloride Level Pending Carbon Dioxide Level Pending Blood Urea Nitrogen Pending Creatinine Pending Estimat Glomerular Filtration Rate Pending Glucose Level Pending Calcium Level Pending Magnesium Level Pending Total Bilirubin Pending Aspartate Amino Transf (AST/SGOT) Pending Alanine Aminotransferase (ALT/SGPT) Pending Alkaline Phosphatase Pending Total Protein Pending Albumin Pending Globulin Pending Test 02/20/20 05:21 POC Whole Blood Glucose 82 MG/DL (74-106) Height (Feet): 5 Height (Inches): 7.00 Weight (Pounds): 224 Medications Current Medications Medications (Trade) Dose Ordered Sig/Netta Route PRN Reason Start Time Stop Time Status Last Admin Dose Admin Acetaminophen (Tylenol) 650 mg Q6H PRN ORAL Mild Pain (Pain Scale 1-3) 02/18/20 18:45 03/19/20 18:44 Acetaminophen/ Hydrocodone Bitart ([place] 5/325) 1 tab Q6H PRN ORAL Moderate Pain (Pain Scale 4-6) 02/18/20 18:45 02/25/20 18:44 02/19/20 10:47 Ceftriaxone Sodium 1 gm/ Dextrose 55 ml @ 110 mls/hr Q24H IVPB 02/19/20 21:00 02/26/20 20:59 02/19/20 21:15 Clonazepam (KlonoPIN) 1 mg BEDTIME ORAL 02/19/20 21:00 02/26/20 20:59 02/19/20 22:42 Dextrose (Dextrose 50%) 25 ml Q30M PRN IV Hypoglycemia 02/18/20 18:45 05/18/20 18:44 Dextrose (Dextrose 50%) 50 ml Q30M PRN IV Hypoglycemia 02/18/20 18:45 05/18/20 18:44 Escitalopram Oxalate (Lexapro) 20 mg DAILY ORAL 02/20/20 09:00 03/21/20 08:59 Hydromorphone HCl (Dilaudid) 1 mg Q3H PRN IVP Severe Pain (Pain Scale 7-10) 02/18/20 18:45 02/25/20 18:44 02/20/20 05:37 Hydromorphone HCl (Dilaudid) 1.5 mg Q3H PRN IVP For breakthrough pain 02/19/20 20:36 02/26/20 20:35 02/20/20 00:02 Insulin Aspart (NovoLOG) BEFORE MEALS AND HS SUBQ 02/18/20 21:00 05/18/20 20:59 Iohexol (OMNIPAQUE-300 100ml) 100 ml NOW PRN INJ Radiology Procedure 02/18/20 13:15 02/20/20 13:13 Ondansetron HCl (Zofran) 4 mg Q4H PRN IVP Nausea & Vomiting 02/18/20 18:45 03/19/20 18:44 Sodium Chloride 1,000 ml @ 50 mls/hr Q20H IV 02/18/20 21:57 03/19/20 21:56 02/19/20 18:08 Assessment/Plan Assessment/Plan: Oncology Consultation REAlok DENISE: Carmen [facility]: Endometrial cancer, stage iv likely DOS 02/20/2020 HPI A pleasant 44yo AAF who reported for abdominal pain. She has a known medical history for endometrial carcinoma with METs. She is being followed at [facility] by Dr Lazo. She has not started on chemotherapy and/or radiation but has plans too. She is non surgical for now due to mets. She states is mostly left lower quadrant. Pain is 10/10. Her oxycodone 10mg is not helping any more. She tried doubling the medication as well. She denies fever, chills, night sweats, cough, nausea, vomiting or diarrhea. She is having some discharge and noted spotting blood on toilet paper. On KUB its negative for acute obstruction. On CT of A/P shows endometrial mass at 9x9cm with multiple large masses in the abdominal cavity. Patient admitted for leukocytosis and abdominal pain. Onco consulted. Allergies: PENICILLINS (Verified Allergy, Mild, Itching, 02/18/20) COVID-19 Screening Contact w/high risk pt: No Recent Travel to affected area: No Experienced COVID-19 symptoms?: No Medication History Scheduled Clonazepam* (Klonopin*), Unknown Dose ORAL Q6H, (Reported) Escitalopram Oxalate* (Lexapro*), Unknown Dose ORAL DAILY, (Reported) Oxycodone Hcl Er* (Oxycontin*), 20 MG ORAL EVERY 12 HOURS, (Reported) Patient History Healthcare decision maker Review of Systems Constitutional: Reports: no symptoms Eye: Reports: no symptoms ENT: Reports: no symptoms Respiratory: Reports: no symptoms Cardiovascular: Reports: no symptoms Gastrointestinal: Reports: abdominal pain Genitourinary: Reports: discharge, vag bleed/dc Musculoskeletal: Reports: no symptoms Skin: Reports: no symptoms Psychiatric: Reports: no symptoms Neurological: Reports: no symptoms Endocrine: Reports: no symptoms Physical Exam General Appearance: moderate distress HEENT: normocephalic, atraumatic Neck: non-tender, normal alignment Respiratory/Chest: chest wall non-tender, lungs clear Cardiovascular/Chest: normal peripheral pulses, normal rate, regular rhythm Abdomen: soft, abnormal bowel sounds, tender, mass likely palpated Extremities: normal range of motion, non-tender Neurologic: cisco consultant II-XII grossly normal, no motor/sensory deficits, alert, oriented x 3 Labs: noted Imaging: CT A/P Very unusual finding of a cystic mass expanding the endocervical canal and lower uterine segment endometrium. Given history of endometrial carcinoma it is quite possible that this represents hydrometra related to obstruction of the outer endocervical canal by tumor. The possibility of cystic neoplasm involving the endocervical canal and lower uterine endometrial cavity could also be considered, although this would be very unusual. Nonspecific thickening of the upper uterine endometrium, likely related to stated clinical history of endometrial carcinoma Large 14 x 10.2 x 20 cm mixed solid and cystic/necrotic left mid abdominal mass. This presumably represents a large metastatic deposit, given stated clinical history of endometrial carcinoma. Assessment and recs # Endometrial cancer, stage IV, Very unusual finding of a cystic mass expanding the endocervical canal and lower uterine segment endometrium. Given history of endometrial carcinoma it is quite possible that this represents hydrometra related to obstruction of the outer endocervical canal by tumor. The possibility of cystic neoplasm involving the endocervical canal and lower uterine endometrial cavity could also be considered, although this would be very unusual. Nonspecific thickening of the upper uterine endometrium, likely related to stated clinical history of endometrial carcinoma. Large 14 x 10.2 x 20 cm mixed solid and cystic/necrotic left mid abdominal mass. This presumably represents a large metastatic deposit, given stated clinical history of endometrial carcinoma. --> needs chemotherapy and radiation prior to surgery --> dw patient re this plan --> tumor markers has been ordered --> currently not a curative candidate --> eval tissue once surgery complete with Noris Lazo --> has my card if would like to come to office # Leukocytosis --> Likely reactive leukocytosis due to the metastatic process. --> r.o infectious etiology --> abx as needed --> wbc 19-->22 # Suicidal ideation but no plan --> Consult to psychiatry -> Suicidal precautions # Abdominal pain -> is likely due to above # MOHSEN (acute kidney injury) --> renal eval prn --> Fluid hydration per orders # DVT prophylaxis with subcu Lovenox. Appreciate consultation and dw Eric Lomax MD Feb 20, 2020 06:39
[2020-02-20 07:04] LABS: ALANINE AMINOTRANSFERASE 15 U/L (12-78); ALBUMIN 1.7 G/DL (3.4-5.0); ALBUMIN/GLOBULIN RATIO 0.3 (1.0-2.7); ALKALINE PHOSPHATASE 107 U/L (46-116); ANION GAP 10 mmol/L (5-15); ASPARTATE AMINO TRANSFERASE 26 U/L (15-37); BILIRUBIN,TOTAL 0.2 MG/DL (0.2-1.0); BLOOD UREA NITROGEN 1 mg/dL (7-18); CALCIUM 8.1 MG/DL (8.5-10.1); CARBON DIOXIDE 27 MMOL/L (21-32); CHLORIDE 101 MMOL/L (98-107); POTASSIUM 3.8 MMOL/L (3.5-5.1); SODIUM 138 MMOL/L (136-145)
[2020-02-20 08:00] VITALS: BP 117/75
--- NOTE | 2020-02-20 09:44 | Consultation ---
History of Present Illness General Date patient seen: Feb 20, 2020 Chief Complaint: Abdominal Pain Present Illness Allergies: Coded Allergies: PENICILLINS (Verified Allergy, Mild, Itching, 02/18/20) Medication History Scheduled Clonazepam* (Klonopin*), Unknown Dose ORAL Q6H, (Reported) Escitalopram Oxalate* (Lexapro*), Unknown Dose ORAL DAILY, (Reported) Oxycodone Hcl Er* (Oxycontin*), 20 MG ORAL EVERY 12 HOURS, (Reported) Patient History Healthcare decision maker Resuscitation status Advanced Directive on File Physical Exam Last 24 Hour Vital Signs Date Time Temp Pulse Resp B/P (MAP) Pulse Ox O2 Delivery O2 Flow Rate FiO2 02/20/20 08:00 98.8 89 19 117/75 (89) 95 02/20/20 04:00 99.1 73 16 98/52 (67) 95 02/20/20 00:00 98.4 79 16 105/58 (74) 94 02/19/20 21:00 Room Air 02/19/20 20:00 98.5 75 16 100/55 (70) 97 02/19/20 19:02 98.6 02/19/20 16:00 98.6 79 18 105/62 (76) 96 02/19/20 12:00 98.6 76 18 98/58 (71) 96 02/19/20 11:17 98.9 Intake and Output 02/19/20 02/20/20 19:00 07:00 Intake Total 50 ml 400 ml Balance 50 ml 400 ml Intake Oral 400 ml IV Total 50 ml Laboratory Tests Test 02/19/20 11:46 02/19/20 17:09 02/19/20 21:17 02/20/20 05:20 POC Whole Blood Glucose Pending 70 MG/DL (74-106) L 88 MG/DL (74-106) White Blood Count 20.5 K/UL (4.8-10.8) H Red Blood Count 3.32 M/UL (4.20-5.40) L Hemoglobin 8.9 G/DL (12.0-16.0) L Hematocrit 29.4 % (37.0-47.0) L Mean Corpuscular Volume 89 FL (80-99) Mean Corpuscular Hemoglobin 26.8 PG (27.0-31.0) L Mean Corpuscular Hemoglobin Concent 30.2 G/DL (32.0-36.0) L Red Cell Distribution Width 20.1 % (11.6-14.8) H Platelet Count 630 K/UL (150-450) H Mean Platelet Volume 5.1 FL (6.5-10.1) L Neutrophils (%) (Auto) % (45.0-75.0) Lymphocytes (%) (Auto) % (20.0-45.0) Monocytes (%) (Auto) % (1.0-10.0) Eosinophils (%) (Auto) % (0.0-3.0) Basophils (%) (Auto) % (0.0-2.0) Neutrophils % (Manual) Pending Lymphocytes % (Manual) Pending Platelet Estimate Pending Platelet Morphology Pending Sodium Level 138 MMOL/L (136-145) Potassium Level 3.8 MMOL/L (3.5-5.1) Chloride Level 101 MMOL/L (98-107) Carbon Dioxide Level 27 MMOL/L (21-32) Anion Gap 10 mmol/L (5-15) Blood Urea Nitrogen 1 mg/dL (7-18) L Creatinine 1.0 MG/DL (0.55-1.30) Estimat Glomerular Filtration Rate > 60 mL/min (>60) Glucose Level 77 MG/DL (74-106) Calcium Level 8.1 MG/DL (8.5-10.1) L Magnesium Level 1.8 MG/DL (1.8-2.4) Total Bilirubin 0.2 MG/DL (0.2-1.0) Aspartate Amino Transf (AST/SGOT) 26 U/L (15-37) Alanine Aminotransferase (ALT/SGPT) 15 U/L (12-78) Alkaline Phosphatase 107 U/L (46-116) Total Protein 7.4 G/DL (6.4-8.2) Albumin 1.7 G/DL (3.4-5.0) L Globulin 5.7 g/dL Albumin/Globulin Ratio 0.3 (1.0-2.7) L Carcinoembryonic Antigen Pending CA 15-3 Antigen Pending CA 19-9 Antigen Pending CA 125 Antigen Pending Test 02/20/20 05:21 POC Whole Blood Glucose 82 MG/DL (74-106) Height (Feet): 5 Height (Inches): 7.00 Weight (Pounds): 224 Medications Current Medications Medications (Trade) Dose Ordered Sig/Netta Route PRN Reason Start Time Stop Time Status Last Admin Dose Admin Acetaminophen (Tylenol) 650 mg Q6H PRN ORAL Mild Pain (Pain Scale 1-3) 02/18/20 18:45 03/19/20 18:44 Acetaminophen/ Hydrocodone Bitart ([place] 5/325) 1 tab Q6H PRN ORAL Moderate Pain (Pain Scale 4-6) 02/18/20 18:45 02/25/20 18:44 02/19/20 10:47 Ceftriaxone Sodium 1 gm/ Dextrose 55 ml @ 110 mls/hr Q24H IVPB 02/19/20 21:00 02/26/20 20:59 02/19/20 21:15 Clonazepam (KlonoPIN) 1 mg BEDTIME ORAL 02/19/20 21:00 02/26/20 20:59 02/19/20 22:42 Dextrose (Dextrose 50%) 25 ml Q30M PRN IV Hypoglycemia 02/18/20 18:45 05/18/20 18:44 Dextrose (Dextrose 50%) 50 ml Q30M PRN IV Hypoglycemia 02/18/20 18:45 05/18/20 18:44 Escitalopram Oxalate (Lexapro) 20 mg DAILY ORAL 02/20/20 09:00 03/21/20 08:59 02/20/20 08:40 Hydromorphone HCl (Dilaudid) 1 mg Q3H PRN IVP Severe Pain (Pain Scale 7-10) 02/18/20 18:45 02/25/20 18:44 02/20/20 08:40 Hydromorphone HCl (Dilaudid) 1.5 mg Q3H PRN IVP For breakthrough pain 02/19/20 20:36 02/26/20 20:35 02/20/20 00:02 Insulin Aspart (NovoLOG) BEFORE MEALS AND HS SUBQ 02/18/20 21:00 05/18/20 20:59 Iohexol (OMNIPAQUE-300 100ml) 100 ml NOW PRN INJ Radiology Procedure 02/18/20 13:15 02/20/20 13:13 Ondansetron HCl (Zofran) 4 mg Q4H PRN IVP Nausea & Vomiting 02/18/20 18:45 03/19/20 18:44 Sodium Chloride 1,000 ml @ 50 mls/hr Q20H IV 02/18/20 21:57 03/19/20 21:56 02/19/20 18:08 Assessment/Plan Assessment/Plan: (1) Endometrial Cancer (2) Intractable pain Seen dictated. Roque Gonzalez Feb 20, 2020 09:44
[2020-02-20] MEDS ORDERED: Methocarbamol 500mg tab ORAL PRN (09:45)
--- NOTE | 2020-02-20 10:30 | Consultation ---
DATE OF CONSULTATION: 02/19/2020 HISTORY OF PRESENT ILLNESS: The patient is a 44-year-old female with a history of multiple medical issues including pyelonephritis, leukocytosis, endometrial cancer. The patient also presented with depression anhedonia, worthlessness, hopelessness, currently on Lexapro 10 mg in the morning. The patient also has anxiety. The patient says she has suicidal thoughts medical condition. She denied The patient has no intention to end her life; however, she has been thinking about it. PAST PSYCHIATRIC HISTORY: Denies any psychiatric hospitalization. No suicide attempt. PAST MEDICAL HISTORY: As above. ALLERGIES: Penicillin. SUBSTANCE USE HISTORY: No known history of illicit drug use or alcohol. However, the patient is asking for Dilaudid pain medication MENTAL STATUS: Alert, oriented x4 to self, place, situation, and date. Mood is depressed. Affect is constricted. Congruent mood. Thought process is linear and goal oriented. Thought content, there is suicidal ideation without plan. No homicidal ideation. No delusions. No auditory or visual hallucination. Cognition is impaired including memory and concentration. Insight and judgment is poor. ASSESSMENT: AXIS I: 1. Major depressive disorder. 2. Anxiety disorder. AXIS II: Deferred. AXIS III: As above. AXIS IV: As above. AXIS V: 50 PLAN: 1. Increase the Lexapro to 20 mg in the morning. 2. Increase the Klonopin to 1 mg p.o. at bedtime. 3. Provide the patient with reality orientation. 4. We will continue to follow up and reassess. Kimo Comer M.D. DR: IRENE JOB#: [id number] CC: REESE
[2020-02-20 12:00] VITALS: BP_SYST 121; BP_SYST 70; BP_DIAS 70; BP_DIAS 75
--- NOTE | 2020-02-20 12:25 | General Progress Note ---
Assessment/Plan Problem List: (1) Depression determined by examination Assessment & Plan: Patient depressed about diagnosis. Has suicidal ideation but no plan Consult to psychiatry Increased Lexapro Klonopin at night Suicidal precautions ICD Codes: F32.9 - Major depressive disorder, single episode, unspecified SNOMED: 239613444 (2) Abdominal pain Assessment & Plan: Likely due to patient's endometrial carcinoma with metastasis. Patient currently on 1 mg Dilaudid every 4 hours as needed. She says it is the only thing that helps Consult to pain management. CT shows mass in uterus. ICD Codes: R10.9 - Unspecified abdominal pain SNOMED: 23555896 (3) Endometrial ca Assessment & Plan: Consult to oncology. Needs Chemo and radiation Will follow up with her oncologist on 02/22/20 ICD Codes: C54.1 - Malignant neoplasm of endometrium SNOMED: 322517079 (4) MOHSEN (acute kidney injury) Assessment & Plan: Fluid hydration per orders MOHSEN resolving Consult to nephrology and appreciate recommendations. Replace electrolytes as needed. Hold all nephrotoxic medications. ICD Codes: N17.9 - Acute kidney failure, unspecified SNOMED: 3743665, [id number] (5) Leukocytosis Assessment & Plan: Likely reactive leukocytosis due to the metastatic process - improving Hematology and oncology following. ICD Codes: D72.829 - Elevated white blood cell count, unspecified SNOMED: 458299792, [id number] Status: stable, progressing Assessment/Plan: DVT prophylaxis with subcu Lovenox. 35 minutes time spent on this patient [id number]. 20 minutes per chart review , coordinating with consultants. Subjective Date patient seen: Feb 20, 2020 Time patient seen: 10:00 HEENT: Reports: no symptoms Cardiovascular: Reports: no symptoms Respiratory: Reports: no symptoms Gastrointestinal/Abdominal: Reports: abdominal pain; Denies: black stools, tarry stools, blood in stool, diarrhea Genitourinary: Reports: pain Neurologic/Psychiatric: Reports: depressed Hematologic/Lymphatic: Reports: anemia Allergies: Coded Allergies: PENICILLINS (Verified Allergy, Mild, Itching, 02/18/20) All Systems: reviewed and negative except above Subjective Patients pain is better controlled with Dilaudid. Still feeling depressed about her situation. Was to go to her appointment on Tuesday with her oncologist to begin treatment. Objective Last 24 Hour Vital Signs Date Time Temp Pulse Resp B/P (MAP) Pulse Ox O2 Delivery O2 Flow Rate FiO2 02/20/20 09:00 Room Air 02/20/20 09:00 Room Air 02/20/20 08:00 98.8 89 19 117/75 (89) 95 02/20/20 04:00 99.1 73 16 98/52 (67) 95 02/20/20 00:00 98.4 79 16 105/58 (74) 94 02/19/20 21:00 Room Air 02/19/20 20:00 98.5 75 16 100/55 (70) 97 02/19/20 19:02 98.6 02/19/20 16:00 98.6 79 18 105/62 (76) 96 Intake and Output 02/19/20 02/20/20 19:00 07:00 Intake Total 50 ml 400 ml Balance 50 ml 400 ml Intake Oral 400 ml IV Total 50 ml Laboratory Tests 02/19/20 17:09: POC Whole Blood Glucose 70L 02/19/20 21:17: POC Whole Blood Glucose 88 02/20/20 05:20: White Blood Count 20.5H, Red Blood Count 3.32L, Hemoglobin 8.9L, Hematocrit 29.4L, Mean Corpuscular Volume 89, Mean Corpuscular Hemoglobin 26.8L, Mean Corpuscular Hemoglobin Concent 30.2L, Red Cell Distribution Width 20.1H, Platelet Count 630H, Mean Platelet Volume 5.1L, Neutrophils (%) (Auto) , Lymphocytes (%) (Auto) , Monocytes (%) (Auto) , Eosinophils (%) (Auto) , Basophils (%) (Auto) , Differential Total Cells Counted 100, Neutrophils % ( Manual) 89H, Lymphocytes % (Manual) 7L, Monocytes % (Manual) 3, Eosinophils % ( Manual) 1, Basophils % (Manual) 0, Band Neutrophils 0, Platelet Estimate IncreasedH, Platelet Morphology Normal, Hypochromasia 1+, Anisocytosis 2+, Sodium Level 138, Potassium Level 3.8, Chloride Level 101, Carbon Dioxide Level 27, Anion Gap 10, Blood Urea Nitrogen 1L, Creatinine 1.0, Estimat Glomerular Filtration Rate > 60, Glucose Level 77, Calcium Level 8.1L, Magnesium Level 1.8 , Total Bilirubin 0.2, Aspartate Amino Transf (AST/SGOT) 26, Alanine Aminotransferase (ALT/SGPT) 15, Alkaline Phosphatase 107, Total Protein 7.4, Albumin 1.7L, Globulin 5.7, Albumin/Globulin Ratio 0.3L, Carcinoembryonic Antigen [Pending], CA 15-3 Antigen [Pending], CA 19-9 Antigen [Pending], CA 125 Antigen [Pending] 02/20/20 05:21: POC Whole Blood Glucose 82 02/20/20 11:41: POC Whole Blood Glucose 84 Height (Feet): 5 Height (Inches): 7.00 Weight (Pounds): 224 General Appearance: no apparent distress, alert, lethargic EENT: PERRL/EOMI Neck: normal alignment, normal inspection Cardiovascular: normal rate, regular rhythm, no gallop/murmur, no JVD Respiratory/Chest: chest wall non-tender, lungs clear, normal breath sounds, no respiratory distress, no accessory muscle use Abdomen: normal bowel sounds, no mass, tender Pelvis: normal external exam, tender uterus Extremities: non-tender, normal inspection Edema: no edema noted Arm (L), no edema noted Arm (R), no edema noted Leg (L), no edema noted Leg (R), no edema noted Pedal (L), no edema noted Pedal (R), no edema noted Generalized Neurologic: cuff setter overlock II-XII grossly normal, no motor/sensory deficits, alert, oriented x 3, responsive Skin: normal pigmentation, warm/dry Yoandy Montoya M.D. Feb 20, 2020 12:25
--- NOTE | 2020-02-20 14:45 | Diagnostic Imaging Report ---
Indications: Back pain Technique: Spiral acquisitions obtained through the lumbar spine. Multiplanar reconstructions were generated. No IV contrast utilized. Total dose length product 649 mGycm. CTDIvol(s) 15 mGy. Dose reduction achieved using automated exposure control Comparison: No prior lumbar spine CT. Reference made to abdomen pelvis CT of 02/18/2020 Findings: Bony alignment is normal. Vertebral body heights are preserved. Disc spaces are preserved. 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 No acute fractures. No dislocations. At L2-3, there is mild circumferential annular bulge as well as some asymmetric thickening of the posterior longitudinal ligament. This does not result in any significant compromise of the spinal canal. The neural foramina are preserved. At L3-4, there is mild circumferential annular bulge. This does not result in any significant narrowing the spinal canal or neural foramina. At the remaining disc levels, no significant disc bulge or protrusion or spinal stenosis. There is mild bilateral facet arthrosis at L4-5 and L5-S1. Please refer to prior CT abdomen pelvis report as regards the included extraspinal soft tissues Impression: No acute bony trauma Minimal degenerative changes, as described, without evidence of significant neural impingement The CT scanner at [facility] is accredited by the [employer] and the scans are performed using protocols designed to limit radiation exposure to as low as reasonably achievable to attain images of sufficient resolution adequate for diagnostic evaluation.
[2020-02-20 16:00] VITALS: BP 117/70
[2020-02-20] MEDS: HYDROcodone/Acetamin 10/325 tab ORAL PRN (16:24)
[2020-02-20 20:00] VITALS: BP 120/69
[2020-02-20] MEDS: cefTRIAXone 1 GM in D5W 55 ML IVPB SCH (20:10)
--- NOTE | 2020-02-20 22:08 | Psych Consult Progress Note ---
Psychiatry Progress Note Psychiatry Progress Note Subjective the pt cont to be depressed and withdrawn Medications Current Medications Medications (Trade) Dose Ordered Sig/Netta Route PRN Reason Start Time Stop Time Status Last Admin Dose Admin Acetaminophen (Tylenol) 650 mg Q6H PRN ORAL Mild Pain (Pain Scale 1-3) 02/18/20 18:45 03/19/20 18:44 Acetaminophen/ Hydrocodone Bitart ([place] 10/325) 1 tab Q4H PRN ORAL Breakthrough Pain 02/20/20 09:45 02/27/20 09:44 02/20/20 16:24 Ceftriaxone Sodium 1 gm/ Dextrose 55 ml @ 110 mls/hr Q24H IVPB 02/19/20 21:00 02/26/20 20:59 02/20/20 20:10 Clonazepam (KlonoPIN) 1 mg BEDTIME ORAL 02/19/20 21:00 02/26/20 20:59 02/20/20 20:10 Dextrose (Dextrose 50%) 25 ml Q30M PRN IV Hypoglycemia 02/18/20 18:45 05/18/20 18:44 Dextrose (Dextrose 50%) 50 ml Q30M PRN IV Hypoglycemia 02/18/20 18:45 05/18/20 18:44 Escitalopram Oxalate (Lexapro) 20 mg DAILY ORAL 02/20/20 09:00 03/21/20 08:59 02/20/20 08:40 Gabapentin (Neurontin) 300 mg THREE TIMES A DAY ORAL 02/20/20 09:45 03/21/20 09:44 02/20/20 18:46 Hydromorphone HCl (Dilaudid) 1 mg Q3H PRN IVP Severe Pain (Pain Scale 7-10) 02/18/20 18:45 02/25/20 18:44 02/20/20 21:56 Insulin Aspart (NovoLOG) BEFORE MEALS AND HS SUBQ 02/18/20 21:00 05/18/20 20:59 Methocarbamol (Robaxin) 500 mg Q8H PRN ORAL muscle spasm 02/20/20 09:45 03/21/20 09:44 Ondansetron HCl (Zofran) 4 mg Q4H PRN IVP Nausea & Vomiting 02/18/20 18:45 03/19/20 18:44 Sodium Chloride 1,000 ml @ 50 mls/hr Q20H IV 02/18/20 21:57 03/19/20 21:56 02/20/20 13:59 Neurological/Psychiatric: Reports: anxiety, depressed, emotional problems Allergies: Coded Allergies: PENICILLINS (Verified Allergy, Mild, Itching, 02/18/20) Objective Data Height (Feet): 5 Height (Inches): 7.00 Weight (Pounds): 224 Behavior Mannerisms: good eye contact Mental Status Exam - Affect: constricted Additional Comments: Alert, oriented x4 to self, place, situation, and date. Mood is depressed. Affect is constricted. Congruent mood. Thought process is linear and goal oriented. Thought content, there is suicidal ideation without plan. No homicidal ideation. No delusions. No auditory or visual hallucination. Cognition is impaired including memory and concentration. Insight and judgment is poor. Assessment/Plan Status: stable, progressing Assessment/Plan: ASSESSMENT: AXIS I: 1. Major depressive disorder. 2. Anxiety disorder. AXIS II: Deferred. AXIS III: As above. AXIS IV: As above. AXIS V: 50 PLAN: 1. Increase the Lexapro to 20 mg in the morning. 2. Increase the Klonopin to 1 mg p.o. at bedtime. 3. Provide the patient with reality orientation. 4. We will continue to follow up and reassess Kimo Comer MD Feb 20, 2020 22:08
[2020-02-21] MEDS: HYDROmorphone 1mg/ml Carpuject IVP PRN ×5 (02:01→14:17)
[2020-02-21 04:00] VITALS: BP 111/68
[2020-02-21] MEDS: NovoLOG Insulin Flexpen SUBQ SCH ×2 (06:04→11:30)
[2020-02-21 06:28] LABS: HEMATOCRIT 30.3 % (37.0-47.0); HEMOGLOBIN 9.1 G/DL (12.0-16.0); MEAN CORPUSCULAR VOLUME 89 FL (80-99); PLATELET COUNT 617 K/UL (150-450); RED BLOOD COUNT 3.41 M/UL (4.20-5.40); RED CELL DISTRIBUTION WIDTH 20.6 % (11.6-14.8); WHITE BLOOD COUNT 20.4 K/UL (4.8-10.8)
[2020-02-21 07:04] LABS: ALANINE AMINOTRANSFERASE 15 U/L (12-78); ALBUMIN 1.7 G/DL (3.4-5.0); ALBUMIN/GLOBULIN RATIO 0.3 (1.0-2.7); ALKALINE PHOSPHATASE 104 U/L (46-116); ANION GAP 10 mmol/L (5-15); ASPARTATE AMINO TRANSFERASE 23 U/L (15-37); BILIRUBIN,TOTAL 0.2 MG/DL (0.2-1.0); BLOOD UREA NITROGEN 4 mg/dL (7-18); CALCIUM 8.1 MG/DL (8.5-10.1); CARBON DIOXIDE 26 MMOL/L (21-32); CHLORIDE 103 MMOL/L (98-107); POTASSIUM 3.7 MMOL/L (3.5-5.1); SODIUM 139 MMOL/L (136-145)
[2020-02-21 08:00] VITALS: BP 119/68
[2020-02-21] MEDS ORDERED: Enoxaparin 40mg Inj SUBQ SCH (09:00)
--- NOTE | 2020-02-21 09:40 | General Progress Note ---
Assessment/Plan Assessment/Plan: (1) Endometrial Cancer (2) Intractable pain Patient will be continued on [place], Dilaudid and Neurontin. An Rx for Percocet, Neurontin and Narcan was written for patient in anticipation for discharge. D/w Dr. Herbert and he concurred. Subjective Date patient seen: Feb 21, 2020 Time patient seen: 09:15 - am Constitutional: Reports: no symptoms HEENT: Reports: no symptoms Cardiovascular: Reports: no symptoms Respiratory: Reports: no symptoms Gastrointestinal/Abdominal: Reports: abdominal pain Genitourinary: Reports: no symptoms Neurologic/Psychiatric: Reports: no symptoms Endocrine: Reports: no symptoms Hematologic/Lymphatic: Reports: no symptoms Allergies: Coded Allergies: PENICILLINS (Verified Allergy, Mild, Itching, 02/18/20) Subjective Patient explains that the pain has been tolerated on the Dilaudid and [place], she feels that the pain has reduced with the Neurontin. D/w Dr. Montoya. CT was reviewed. Objective Last 24 Hour Vital Signs Date Time Temp Pulse Resp B/P (MAP) Pulse Ox O2 Delivery O2 Flow Rate FiO2 02/21/20 08:00 99.0 87 20 119/68 (85) 97 02/21/20 04:00 98.7 86 18 111/68 (82) 95 02/20/20 21:00 Room Air 02/20/20 20:00 98.9 74 18 120/69 (86) 97 02/20/20 16:54 98.9 02/20/20 16:00 98.9 80 18 117/70 (86) 95 02/20/20 12:00 98.9 80 19 121/70 (87) 95 Intake and Output 02/20/20 02/21/20 19:00 07:00 Intake Total 550 ml 1400 ml Balance 550 ml 1400 ml Intake Oral 1400 ml IV Total 550 ml Laboratory Tests 02/20/20 11:41: POC Whole Blood Glucose 84 02/20/20 16:25: POC Whole Blood Glucose 89 02/20/20 20:09: POC Whole Blood Glucose 113H 02/21/20 05:06: POC Whole Blood Glucose 89 02/21/20 05:10: White Blood Count 20.4H, Red Blood Count 3.41L, Hemoglobin 9.1L, Hematocrit 30.3L, Mean Corpuscular Volume 89, Mean Corpuscular Hemoglobin 26.7L, Mean Corpuscular Hemoglobin Concent 30.0L, Red Cell Distribution Width 20.6H, Platelet Count 617H, Mean Platelet Volume 5.1L, Neutrophils (%) (Auto) , Lymphocytes (%) (Auto) , Monocytes (%) (Auto) , Eosinophils (%) (Auto) , Basophils (%) (Auto) , Neutrophils % (Manual) [Pending], Lymphocytes % (Manual) [Pending], Platelet Estimate [Pending], Platelet Morphology [Pending], Sodium Level 139, Potassium Level 3.7, Chloride Level 103, Carbon Dioxide Level 26, Anion Gap 10, Blood Urea Nitrogen 4L, Creatinine 1.0, Estimat Glomerular Filtration Rate > 60, Glucose Level 82, Calcium Level 8.1L, Magnesium Level 1.8 , Total Bilirubin 0.2, Aspartate Amino Transf (AST/SGOT) 23, Alanine Aminotransferase (ALT/SGPT) 15, Alkaline Phosphatase 104, Total Protein 7.4, Albumin 1.7L, Globulin 5.7, Albumin/Globulin Ratio 0.3L Height (Feet): 5 Height (Inches): 7.00 Weight (Pounds): 224 General Appearance: no apparent distress, alert EENT: PERRL/EOMI, normal ENT inspection Neck: non-tender, normal alignment Cardiovascular: normal rate, regular rhythm Respiratory/Chest: lungs clear, normal breath sounds Abdomen: tender Extremities: non-tender Edema: trace edema Neurologic: alert, oriented x 3 Skin: warm/dry Objective Procedure: CT L Spine no Contrast Indications: Back pain Technique: Spiral acquisitions obtained through the lumbar spine. Multiplanar reconstructions were generated. No IV contrast utilized. Total dose length product 649 mGycm. CTDIvol(s) 15 mGy. Dose reduction achieved using automated exposure control Comparison: No prior lumbar spine CT. Reference made to abdomen pelvis CT of 02/17 Findings: Bony alignment is normal. Vertebral body heights are preserved. Disc spaces are preserved. 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 No acute fractures. No dislocations. At L2-3, there is mild circumferential annular bulge as well as some asymmetric thickening of the posterior longitudinal ligament. This does not result in any significant compromise of the spinal canal. The neural foramina are preserved. At L3-4, there is mild circumferential annular bulge. This does not result in any significant narrowing the spinal canal or neural foramina. At the remaining disc levels, no significant disc bulge or protrusion or spinal stenosis. There is mild bilateral facet arthrosis at L4-5 and L5-S1. Please refer to prior CT abdomen pelvis report as regards the included extraspinal soft tissues Impression: No acute bony trauma Minimal degenerative changes, as described, without evidence of significant neural impingement Roque Gonzalez Feb 21, 2020 09:40
--- NOTE | 2020-02-21 09:54 | Hematology/Onc Progress Note ---
Assessment/Plan Assessment/Plan Assessment and recs # Endometrial cancer, stage IV, Very unusual finding of a cystic mass expanding the endocervical canal and lower uterine segment endometrium. Given history of endometrial carcinoma it is quite possible that this represents hydrometra related to obstruction of the outer endocervical canal by tumor. The possibility of cystic neoplasm involving the endocervical canal and lower uterine endometrial cavity could also be considered, although this would be very unusual. Nonspecific thickening of the upper uterine endometrium, likely related to stated clinical history of endometrial carcinoma. Large 14 x 10.2 x 20 cm mixed solid and cystic/necrotic left mid abdominal mass. This presumably represents a large metastatic deposit, given stated clinical history of endometrial carcinoma. --> needs chemotherapy and radiation prior to surgery --> dw patient re this plan --> tumor markers has been ordered--> CA125 389, ,CA 15-3 45 --> currently not a curative candidate --> eval tissue once surgery complete with Noris Lazo --> has my card if would like to come to office # Leukocytosis --> Likely reactive leukocytosis due to the metastatic process. --> r.o infectious etiology --> abx as needed --> wbc 19-->22-->20 # Anemia due to chronic disease.malignancy --> anemia panel reviewed, no hemolysis --> iron repleted # Suicidal ideation but no plan --> Consult to psychiatry -> Suicidal precautions # Abdominal pain -> is likely due to above # MOHSEN (acute kidney injury) --> renal eval prn --> Fluid hydration per orders # DVT prophylaxis with subcu Lovenox. Appreciate consultation and eliceo RN Subjective Constitutional: Denies: no symptoms, chills, fever, malaise, weakness, other HEENT: Denies: no symptoms, eye pain, blurred vision, tearing, double vision, ear pain, ear discharge, nose pain, nose congestion, throat pain, throat swelling, mouth pain, mouth swelling, other Cardiovascular: Denies: no symptoms, chest pain, edema, irregular heart rate, lightheadedness, palpitations, syncope, other Respiratory: Denies: no symptoms, cough, shortness of breath, SOB with excertion, SOB at rest, sputum, wheezing, other Gastrointestinal/Abdominal: Denies: no symptoms, abdomen distended, abdominal pain, black stools, tarry stools, blood in stool, constipated, diarrhea, difficulty swallowing, nausea, poor appetite, poor fluid intake, rectal bleeding , vomiting, other Genitourinary: Denies: no symptoms, burning, discharge, frequency, flank pain, hematuria, incontinence, pain, urgency, other Neurologic/Psychiatric: Denies: no symptoms, anxiety, depressed, emotional problems, headache, numbness, paresthesia, pre-existing deficit, seizure, tingling, tremors, weakness, other Endocrine: Denies: no symptoms, excessive sweating, flushing, intolerance to cold, intolerance to heat, increased hunger, increased thirst, increased urine, unexplained weight gain, unexplained weight loss, other Allergies: Coded Allergies: PENICILLINS (Verified Allergy, Mild, Itching, 02/18/20) Subjective 02/19 is in less pain this am, no bleeding, meds reviewed as well as tumor markers Objective Objective Current Medications Medications (Trade) Dose Ordered Sig/Netta Route PRN Reason Start Time Stop Time Status Last Admin Dose Admin Acetaminophen (Tylenol) 650 mg Q6H PRN ORAL Mild Pain (Pain Scale 1-3) 02/18/20 18:45 03/19/20 18:44 Acetaminophen/ Hydrocodone Bitart ([place]ancey 10/325) 1 tab Q4H PRN ORAL Breakthrough Pain 02/20/20 09:45 02/27/20 09:44 02/20/20 16:24 Ceftriaxone Sodium 1 gm/ Dextrose 55 ml @ 110 mls/hr Q24H IVPB 02/19/20 21:00 02/26/20 20:59 02/20/20 20:10 Clonazepam (KlonoPIN) 1 mg BEDTIME ORAL 02/19/20 21:00 02/26/20 20:59 02/20/20 20:10 Dextrose (Dextrose 50%) 25 ml Q30M PRN IV Hypoglycemia 02/18/20 18:45 05/18/20 18:44 Dextrose (Dextrose 50%) 50 ml Q30M PRN IV Hypoglycemia 02/18/20 18:45 05/18/20 18:44 Enoxaparin Sodium (Lovenox) 40 mg DAILY SUBQ 02/21/20 09:00 05/21/20 08:59 02/21/20 08:39 Escitalopram Oxalate (Lexapro) 20 mg DAILY ORAL 02/20/20 09:00 03/21/20 08:59 02/21/20 08:36 Gabapentin (Neurontin) 300 mg THREE TIMES A DAY ORAL 02/20/20 09:45 03/21/20 09:44 02/21/20 08:36 Hydromorphone HCl (Dilaudid) 1 mg Q3H PRN IVP Severe Pain (Pain Scale 7-10) 02/18/20 18:45 02/25/20 18:44 02/21/20 08:37 Insulin Aspart (NovoLOG) BEFORE MEALS AND HS SUBQ 02/18/20 21:00 05/18/20 20:59 Methocarbamol (Robaxin) 500 mg Q8H PRN ORAL muscle spasm 02/20/20 09:45 03/21/20 09:44 Ondansetron HCl (Zofran) 4 mg Q4H PRN IVP Nausea & Vomiting 02/18/20 18:45 03/19/20 18:44 Sodium Chloride 1,000 ml @ 50 mls/hr Q20H IV 02/18/20 21:57 03/19/20 21:56 02/20/20 13:59 Last 24 Hour Vital Signs Date Time Temp Pulse Resp B/P (MAP) Pulse Ox O2 Delivery O2 Flow Rate FiO2 02/21/20 09:00 Room Air 02/21/20 08:00 99.0 87 20 119/68 (85) 97 02/21/20 04:00 98.7 86 18 111/68 (82) 95 02/20/20 21:00 Room Air 02/20/20 20:00 98.9 74 18 120/69 (86) 97 02/20/20 16:54 98.9 02/20/20 16:00 98.9 80 18 117/70 (86) 95 02/20/20 12:00 98.9 80 19 121/70 (87) 95 02/20/20 09:00 Room Air 02/20/20 09:00 Room Air 02/20/20 08:00 98.8 89 19 117/75 (89) 95 02/20/20 04:00 99.1 73 16 98/52 (67) 95 02/20/20 00:00 98.4 79 16 105/58 (74) 94 02/19/20 21:00 Room Air 02/19/20 20:00 98.5 75 16 100/55 (70) 97 02/19/20 19:02 98.6 02/19/20 16:00 98.6 79 18 105/62 (76) 96 02/19/20 12:00 98.6 76 18 98/58 (71) 96 02/19/20 11:17 98.9 Intake and Output 02/20/20 02/21/20 19:00 07:00 Intake Total 550 ml 1400 ml Balance 550 ml 1400 ml Intake Oral 1400 ml IV Total 550 ml Labs Test 02/18/20 12:30 02/18/20 13:40 02/18/20 20:22 02/19/20 04:45 White Blood Count 19.2 K/UL (4.8-10.8) 22.1 K/UL (4.8-10.8) Red Blood Count 3.84 M/UL (4.20-5.40) 3.55 M/UL (4.20-5.40) Hemoglobin 10.2 G/DL (12.0-16.0) 9.6 G/DL (12.0-16.0) Hematocrit 34.3 % (37.0-47.0) 31.3 % (37.0-47.0) Mean Corpuscular Volume 89 FL (80-99) 88 FL (80-99) Mean Corpuscular Hemoglobin 26.6 PG (27.0-31.0) 27.0 PG (27.0-31.0) Mean Corpuscular Hemoglobin Concent 29.8 G/DL (32.0-36.0) 30.6 G/DL (32.0-36.0) Red Cell Distribution Width 20.0 % (11.6-14.8) 20.0 % (11.6-14.8) Platelet Count 742 K/UL (150-450) 710 K/UL (150-450) Mean Platelet Volume 5.3 FL (6.5-10.1) 5.4 FL (6.5-10.1) Neutrophils (%) (Auto) % (45.0-75.0) % (45.0-75.0) Lymphocytes (%) (Auto) % (20.0-45.0) % (20.0-45.0) Monocytes (%) (Auto) % (1.0-10.0) % (1.0-10.0) Eosinophils (%) (Auto) % (0.0-3.0) % (0.0-3.0) Basophils (%) (Auto) % (0.0-2.0) % (0.0-2.0) Differential Total Cells Counted 100 100 Neutrophils % (Manual) 88 % (45-75) 88 % (45-75) Lymphocytes % (Manual) 6 % (20-45) 4 % (20-45) Monocytes % (Manual) 6 % (1-10) 6 % (1-10) Eosinophils % (Manual) 0 % (0-3) 2 % (0-3) Basophils % (Manual) 0 % (0-2) 0 % (0-2) Band Neutrophils 0 % (0-8) 0 % (0-8) Platelet Estimate Increased Increased Platelet Morphology Normal Normal Hypochromasia 1+ 1+ Anisocytosis 2+ 2+ Sodium Level 139 MMOL/L (136-145) 136 MMOL/L (136-145) Potassium Level 4.3 MMOL/L (3.5-5.1) 4.0 MMOL/L (3.5-5.1) Chloride Level 98 MMOL/L (98-107) 100 MMOL/L (98-107) Carbon Dioxide Level 26 MMOL/L (21-32) 27 MMOL/L (21-32) Anion Gap 15 mmol/L (5-15) 9 mmol/L (5-15) Blood Urea Nitrogen 7 mg/dL (7-18) 5 mg/dL (7-18) Creatinine 1.4 MG/DL (0.55-1.30) 1.2 MG/DL (0.55-1.30) Estimat Glomerular Filtration Rate 41.0 mL/min (>60) 59.4 mL/min (>60) Glucose Level 118 MG/DL (74-106) 81 MG/DL (74-106) Calcium Level 9.0 MG/DL (8.5-10.1) 8.3 MG/DL (8.5-10.1) Total Bilirubin 0.4 MG/DL (0.2-1.0) 0.3 MG/DL (0.2-1.0) Aspartate Amino Transf (AST/SGOT) 37 U/L (15-37) 31 U/L (15-37) Alanine Aminotransferase (ALT/SGPT) 21 U/L (12-78) 16 U/L (12-78) Alkaline Phosphatase 131 U/L (46-116) 121 U/L (46-116) Total Protein 8.9 G/DL (6.4-8.2) 8.1 G/DL (6.4-8.2) Albumin 2.1 G/DL (3.4-5.0) 1.8 G/DL (3.4-5.0) Globulin 6.8 g/dL 6.3 g/dL Albumin/Globulin Ratio 0.3 (1.0-2.7) 0.3 (1.0-2.7) Lipase 62 U/L (73-393) Urine Color Yellow Urine Appearance Cloudy Urine pH 5 (4.5-8.0) Urine Specific [place] 1.025 (1.005-1.035) Urine Protein 2+ (NEGATIVE) Urine Glucose (UA) Negative (NEGATIVE) Urine Ketones 4+ (NEGATIVE) Urine Blood 5+ (NEGATIVE) Urine Nitrite Negative (NEGATIVE) Urine Bilirubin Negative (NEGATIVE) Urine Urobilinogen 1 MG/DL (0.0-1.0) Urine Leukocyte Esterase 3+ (NEGATIVE) Urine RBC 5-10 /HPF (0 - 2) Urine WBC Tntc /HPF (0 - 2) Urine Squamous Epithelial Cells Few /LPF (NONE/OCC) Urine Bacteria Few /HPF (NONE) POC Whole Blood Glucose 84 MG/DL (74-106) Magnesium Level 2.0 MG/DL (1.8-2.4) Test 02/19/20 05:50 02/19/20 11:46 02/19/20 17:09 02/19/20 21:17 POC Whole Blood Glucose 78 MG/DL (74-106) 70 MG/DL (74-106) 88 MG/DL (74-106) Test 02/20/20 05:20 02/20/20 05:21 02/20/20 11:41 02/20/20 16:25 White Blood Count 20.5 K/UL (4.8-10.8) Red Blood Count 3.32 M/UL (4.20-5.40) Hemoglobin 8.9 G/DL (12.0-16.0) Hematocrit 29.4 % (37.0-47.0) Mean Corpuscular Volume 89 FL (80-99) Mean Corpuscular Hemoglobin 26.8 PG (27.0-31.0) Mean Corpuscular Hemoglobin Concent 30.2 G/DL (32.0-36.0) Red Cell Distribution Width 20.1 % (11.6-14.8) Platelet Count 630 K/UL (150-450) Mean Platelet Volume 5.1 FL (6.5-10.1) Neutrophils (%) (Auto) % (45.0-75.0) Lymphocytes (%) (Auto) % (20.0-45.0) Monocytes (%) (Auto) % (1.0-10.0) Eosinophils (%) (Auto) % (0.0-3.0) Basophils (%) (Auto) % (0.0-2.0) Differential Total Cells Counted 100 Neutrophils % (Manual) 89 % (45-75) Lymphocytes % (Manual) 7 % (20-45) Monocytes % (Manual) 3 % (1-10) Eosinophils % (Manual) 1 % (0-3) Basophils % (Manual) 0 % (0-2) Band Neutrophils 0 % (0-8) Platelet Estimate Increased Platelet Morphology Normal Hypochromasia 1+ Anisocytosis 2+ Sodium Level 138 MMOL/L (136-145) Potassium Level 3.8 MMOL/L (3.5-5.1) Chloride Level 101 MMOL/L (98-107) Carbon Dioxide Level 27 MMOL/L (21-32) Anion Gap 10 mmol/L (5-15) Blood Urea Nitrogen 1 mg/dL (7-18) Creatinine 1.0 MG/DL (0.55-1.30) Estimat Glomerular Filtration Rate > 60 mL/min (>60) Glucose Level 77 MG/DL (74-106) Calcium Level 8.1 MG/DL (8.5-10.1) Magnesium Level 1.8 MG/DL (1.8-2.4) Total Bilirubin 0.2 MG/DL (0.2-1.0) Aspartate Amino Transf (AST/SGOT) 26 U/L (15-37) Alanine Aminotransferase (ALT/SGPT) 15 U/L (12-78) Alkaline Phosphatase 107 U/L (46-116) Total Protein 7.4 G/DL (6.4-8.2) Albumin 1.7 G/DL (3.4-5.0) Globulin 5.7 g/dL Albumin/Globulin Ratio 0.3 (1.0-2.7) Carcinoembryonic Antigen 2.3 ng/mL (0.0-4.7) CA 15-3 Antigen 45.2 U/mL (0.0-25.0) CA 125 Antigen 389.0 U/mL (0.0-38.1) POC Whole Blood Glucose 82 MG/DL (74-106) 84 MG/DL (74-106) 89 MG/DL (74-106) Test 02/20/20 20:09 02/21/20 05:06 02/21/20 05:10 POC Whole Blood Glucose 113 MG/DL (74-106) 89 MG/DL (74-106) White Blood Count 20.4 K/UL (4.8-10.8) Red Blood Count 3.41 M/UL (4.20-5.40) Hemoglobin 9.1 G/DL (12.0-16.0) Hematocrit 30.3 % (37.0-47.0) Mean Corpuscular Volume 89 FL (80-99) Mean Corpuscular Hemoglobin 26.7 PG (27.0-31.0) Mean Corpuscular Hemoglobin Concent 30.0 G/DL (32.0-36.0) Red Cell Distribution Width 20.6 % (11.6-14.8) Platelet Count 617 K/UL (150-450) Mean Platelet Volume 5.1 FL (6.5-10.1) Neutrophils (%) (Auto) % (45.0-75.0) Lymphocytes (%) (Auto) % (20.0-45.0) Monocytes (%) (Auto) % (1.0-10.0) Eosinophils (%) (Auto) % (0.0-3.0) Basophils (%) (Auto) % (0.0-2.0) Sodium Level 139 MMOL/L (136-145) Potassium Level 3.7 MMOL/L (3.5-5.1) Chloride Level 103 MMOL/L (98-107) Carbon Dioxide Level 26 MMOL/L (21-32) Anion Gap 10 mmol/L (5-15) Blood Urea Nitrogen 4 mg/dL (7-18) Creatinine 1.0 MG/DL (0.55-1.30) Estimat Glomerular Filtration Rate > 60 mL/min (>60) Glucose Level 82 MG/DL (74-106) Calcium Level 8.1 MG/DL (8.5-10.1) Magnesium Level 1.8 MG/DL (1.8-2.4) Total Bilirubin 0.2 MG/DL (0.2-1.0) Aspartate Amino Transf (AST/SGOT) 23 U/L (15-37) Alanine Aminotransferase (ALT/SGPT) 15 U/L (12-78) Alkaline Phosphatase 104 U/L (46-116) Total Protein 7.4 G/DL (6.4-8.2) Albumin 1.7 G/DL (3.4-5.0) Globulin 5.7 g/dL Albumin/Globulin Ratio 0.3 (1.0-2.7) Height (Feet): 5 Height (Inches): 7.00 Weight (Pounds): 224 Objective Physical Exam General Appearance: moderate distress HEENT: normocephalic, atraumatic Neck: non-tender, normal alignment Respiratory/Chest: chest wall non-tender, lungs clear Cardiovascular/Chest: normal peripheral pulses, normal rate, regular rhythm Abdomen: soft, abnormal bowel sounds, tender, mass likely palpated Extremities: normal range of motion, non-tender 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
[2020-02-21] MEDS: HYDROcodone/Acetamin 10/325 tab ORAL PRN (10:45)
[2020-02-21 12:00] VITALS: BP 125/75
[2020-02-21] MEDS ORDERED: PERCOCET 10-321 EACH ORAL (13:47)
[2020-02-21] MEDS ORDERED: NEURONTIN100 MG ORAL (13:48)
[2020-02-21] MEDS ORDERED: NARCAN4 MG NS (13:49)
--- NOTE | 2020-02-21 15:03 | General Progress Note ---
Assessment/Plan Problem List: (1) Depression determined by examination Assessment & Plan: Patient depressed about diagnosis. Has suicidal ideation but no plan- feels better today Consult to psychiatry Increased Lexapro Klonopin at night Suicidal precautions ICD Codes: F32.9 - Major depressive disorder, single episode, unspecified SNOMED: 047765185 (2) Abdominal pain Assessment & Plan: Likely due to patient's endometrial carcinoma with metastasis. CT shows mass in uterus. Given recs by pain management for discharge medications Pain management to mamage all pain in hospital. ICD Codes: R10.9 - Unspecified abdominal pain SNOMED: 89517223 (3) Endometrial ca Assessment & Plan: Consult to oncology. Needs Chemo and radiation Now wants to follow with Dr. Haile for her oncology management. Anemia management ICD Codes: C54.1 - Malignant neoplasm of endometrium SNOMED: 609433920 (4) MOHSEN (acute kidney injury) Assessment & Plan: Fluid hydration per orders MOHSEN resolving Consult to nephrology and appreciate recommendations. Replace electrolytes as needed. Hold all nephrotoxic medications. ICD Codes: N17.9 - Acute kidney failure, unspecified SNOMED: 0586026, 14542155 (5) Leukocytosis Assessment & Plan: Likely reactive leukocytosis due to the metastatic process - improving Hematology and oncology following. ICD Codes: D72.829 - Elevated white blood cell count, unspecified SNOMED: 534273921, 632035647 Status: doing well, stable, progressing Assessment/Plan: DVT prophylaxis with subcu Lovenox. 35 minutes time spent on this patient [id number], chart review, coordinating with consultants. Subjective Constitutional: Reports: no symptoms HEENT: Reports: no symptoms Cardiovascular: Reports: no symptoms Respiratory: Reports: no symptoms Gastrointestinal/Abdominal: Reports: abdominal pain Genitourinary: Reports: pain Neurologic/Psychiatric: Reports: depressed Endocrine: Reports: no symptoms Hematologic/Lymphatic: Reports: anemia Allergies: Coded Allergies: PENICILLINS (Verified Allergy, Mild, Itching, 02/18/20) All Systems: reviewed and negative except above Subjective Patient now wants to follow up with Dr. Haile for her oncologic treatment. Still having some abdominal pain but is in better spirits today. Objective Last 24 Hour Vital Signs Date Time Temp Pulse Resp B/P (MAP) Pulse Ox O2 Delivery O2 Flow Rate FiO2 7/9/20 12:00 99.4 85 20 125/75 (92) 98 02/21/20 09:00 Room Air 02/21/20 08:00 99.0 87 20 119/68 (85) 97 02/21/20 04:00 98.7 86 18 111/68 (82) 95 02/20/20 21:00 Room Air 02/20/20 20:00 98.9 74 18 120/69 (86) 97 02/20/20 16:54 98.9 02/20/20 16:00 98.9 80 18 117/70 (86) 95 Intake and Output 02/20/20 02/21/20 19:00 07:00 Intake Total 550 ml 1450 ml Balance 550 ml 1450 ml Intake Oral 1400 ml IV Total 550 ml 50 ml Laboratory Tests 02/20/20 16:25: POC Whole Blood Glucose 89 02/20/20 20:09: POC Whole Blood Glucose 113H 02/21/20 05:06: POC Whole Blood Glucose 89 02/21/20 05:10: White Blood Count 20.4H, Red Blood Count 3.41L, Hemoglobin 9.1L, Hematocrit 30.3L, Mean Corpuscular Volume 89, Mean Corpuscular Hemoglobin 26.7L, Mean Corpuscular Hemoglobin Concent 30.0L, Red Cell Distribution Width 20.6H, Platelet Count 617H, Mean Platelet Volume 5.1L, Neutrophils (%) (Auto) , Lymphocytes (%) (Auto) , Monocytes (%) (Auto) , Eosinophils (%) (Auto) , Basophils (%) (Auto) , Differential Total Cells Counted 100, Neutrophils % ( Manual) 85H, Lymphocytes % (Manual) 5L, Monocytes % (Manual) 7, Eosinophils % ( Manual) 2, Basophils % (Manual) 1, Band Neutrophils 0, Platelet Estimate IncreasedH, Platelet Morphology Normal, Hypochromasia 2+, Anisocytosis 2+, Sodium Level 139, Potassium Level 3.7, Chloride Level 103, Carbon Dioxide Level 26, Anion Gap 10, Blood Urea Nitrogen 4L, Creatinine 1.0, Estimat Glomerular Filtration Rate > 60, Glucose Level 82, Calcium Level 8.1L, Magnesium Level 1.8 , Total Bilirubin 0.2, Aspartate Amino Transf (AST/SGOT) 23, Alanine Aminotransferase (ALT/SGPT) 15, Alkaline Phosphatase 104, Total Protein 7.4, Albumin 1.7L, Globulin 5.7, Albumin/Globulin Ratio 0.3L 02/21/20 11:24: POC Whole Blood Glucose [Pending] Height (Feet): 5 Height (Inches): 7.00 Weight (Pounds): 224 General Appearance: no apparent distress, alert EENT: PERRL/EOMI Neck: non-tender, normal alignment, supple, normal inspection Cardiovascular: normal peripheral pulses, normal rate, regular rhythm, no gallop/murmur, no JVD Respiratory/Chest: chest wall non-tender, normal breath sounds, no respiratory distress Abdomen: normal bowel sounds, non tender, no organomegaly, no mass, tender Pelvis: normal external exam, tender uterus Extremities: non-tender, normal inspection Edema: no edema noted Arm (L), no edema noted Arm (R), no edema noted Leg (L), no edema noted Leg (R), no edema noted Pedal (L), no edema noted Pedal (R), no edema noted Generalized 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 Feb 21, 2020 15:03
[2020-02-21 16:00] VITALS: BP 137/71
--- NOTE | 2020-02-22 08:56 | Psych Consult Progress Note ---
Psychiatry Progress Note Psychiatry Progress Note Subjective 02/21/20 the pt is better no si or intention to end her life. Allergies: Coded Allergies: PENICILLINS (Verified Allergy, Mild, Itching, 02/18/20) Objective Data Height (Feet): 5 Height (Inches): 7.00 Weight (Pounds): 224 Additional Comments: Alert, oriented x4 to self, place, situation, and date. Mood is depressed. Affect is constricted. Congruent mood. Thought process is linear and goal oriented. Thought content, there is suicidal ideation without plan. No homicidal ideation. No delusions. No auditory or visual hallucination. Cognition is impaired including memory and concentration. Insight and judgment is poor. Assessment/Plan Status: doing well, stable, progressing Assessment/Plan: ASSESSMENT: AXIS I: 1. Major depressive disorder. 2. Anxiety disorder. AXIS II: Deferred. AXIS III: As above. AXIS IV: As above. AXIS V: 50 PLAN: 1. Increase the Lexapro to 20 mg in the morning. 2. Increase the Klonopin to 1 mg p.o. at bedtime. 3. Provide the patient with reality orientation. 4. We will continue to follow up and reassess Kimo Comer MD Feb 22, 2020 08:56
--- NOTE | 2020-02-25 10:25 | Discharge Summary ---
Discharge Summary Discharge Summary _ DATE OF ADMISSION: 02/18/2020 DATE OF DISCHARGE: 02/21/2020 DISCHARGED BY: DR Montoya REASON FOR ADMISSION: 44 years old female with past medical history of endometrial cancer with metastasis, diabetes mellitus, who followed up at [facility] , presented with intractable abdominal pain in the left lower quadrant. Patient did not start chemotherapy or radiation yet , but was advised to do it. Patient a nonsurgical candidate given metastasis. Pain reported 10 out of 10. Her oral analgesic at home did not help. No fever ,chills, night sweats. No cough ,nausea ,vomiting or diarrhea. Patient reported spotting blood on the toilet paper. CT of the abdomen and pelvis revealed large 14 x 10.2 x 20 cm mixed solid and cystic/necrotic left midabdominal mass. Presumably representing a large metastatic deposit. given history of endometrial carcinoma. Fatty liver. Mild left hydronephrosis. Cholelithiasis. KUB revealed no acute abnormality. Mass in the left mid abdomen corresponding to finding reported on recent CT scan. Laboratory work-up revealed leukocytosis WBC 19.2, hemoglobin 10.2, hematocrit 33.4. Platelet count 742. BUN 7, creatinine 1.4. Stable electrolytes. Stable LFT. Albumin 2.1. Urinalysis revealed pyuria, +2 protein ,+3 leukocyte esterase ,and few bacteria. Patient subsequently admitted for further management CONSULTANTS: candy feeder/oncologist Dr. Haile psychiatrist Dr. Comer pain specialist Dr. Herbert [facility] COURSE: Patient admitted to medical surgical floor . Pain management was addressed as per pain specialist. CT scan of the lumbar spine revealed no acute bony trauma. Minimal degenerative changes without evidence of significant neural impingement. No mass . Patient started on the IV fluids. Renal parameters and electrolytes were closely monitored, electrolytes corrected as needed. Nephrotoxic's were avoided. Creatinine down to 1.0 prior to discharge. Per oncologist patient had endometrial cancer stage IV. Cancer tumor markers revealed CA-15-3 -45.2, CA-19-9- 40, Ca125- 389. Oncologist discussed further plan of care with the patient. Patient to follow- up with oncologist as outpatient. Urine culture revealed mixed gram-positive organisms. Rapid COVID testing was negative. Per candy feeder leukocytosis was most likely reactive due to metastatic disease. No evidence of infection. No fevers. DVT prophylaxis provided. Blood sugar was managed with sliding scale of insulin. Psychiatrist seen and evaluated patient. Psychiatric medication regimen was optimized. Reality orientation provided. Patient clinically stabilized and was ready for discharge home with outpatient follow-up with oncologist FINAL DIAGNOSES: Endometrial cancer stage IV Intractable abdominal pain due to above MOHSEN resolved Leukocytosis , likely reactive Major depressive disorder Anxiety disorder DISCHARGE MEDICATIONS: See Medication Reconciliation list. DISCHARGE INSTRUCTIONS: Patient was discharged home. Follow-up with oncologist as outpatient. I have been assigned to dictate discharge summary for this account. I was not involved in the patient's management. Ava Singh NP Feb 25, 2020 10:24
== END 2020-02-21 16:40 | disposition home or self-care (01) | DRG 861 ==
LOC: EDBD 11:27 → EMR 13:26 → 3E 13:40 → EDBEDREQ 17:19
DX: G89.3 Neoplasm related pain (acute) (chronic) (principal); C54.1 Malignant neoplasm of endometrium; C79.89 Secondary malignant neoplasm of other specified sites; N17.9 Acute kidney failure, unspecified; R45.851 Suicidal ideations; F32.9 Major depressive disorder, single episode, unspecified; Z88.0 Allergy status to penicillin; F41.9 Anxiety disorder, unspecified; D63.0 Anemia in neoplastic disease
CPT/HCPCS: 36415; 72131; 74018; 74177; 80053; 81003; 82378; 82962; 83690; 83735; 85007; 85025; 86300; 86304; 87086; 96365; 96375; 96376; 99285; J1815; J2405; J7030; U0002